=== PATIENT | male | born 1935 | race Caucasian/White ===

== ENCOUNTER → 2017-02-17 | Outpatient (CLI) | payer MEDICARE, OTHER ==
[2014-04-22 12:15] VITALS: BP 161/70
[~2017-02-17] MED LIST: ALLO300T PO; AMIT25TA PO; ASPI-482 PO; ATOR40TA59 PO; CHEMOTHERAPY; FINA5TAB4 PO; GABA600T2 PO; HYDR-2163 PO; LEVO75TA PO; LOSA25TA4 PO; METF500T25 PO; METO50TA29 PO; MOXI3DRO2 LEFTEYE; MOXI3DRO2 RIGHTEYE; NEPA1.7D LEFTEYE; NEPA1.7D RIGHTEYE; PRED5DRO16 LEFTEYE; PRED5DRO16 RIGHTEYE; RANI150T2 PO
--- NOTE | 2017-02-17 08:53 | RAD ---
Indication: Left hand swelling, fall. Time of exam 0823 hours. 3 views of the left hand were obtained. There is soft tissue swelling along the dorsum of the hand. There are degenerative changes at the triscaphe and first CMC joints. Metacarpals are intact. The phalanges are intact. No fractures are seen. Impression: Soft tissue swelling and degenerative changes. No acute bony abnormality is detected.
== END | disposition home or self-care (01) ==
LOC: DXRADRC 08:14
PROVIDERS: ATTEND Physician Assistant Medical
DX: M19.042 Primary osteoarthritis, left hand (principal); W19.XXXA Unspecified fall, initial encounter; Y93.89 Activity, other specified; Y92.89 Other specified places as the place of occurrence of the external cause; Y99.8 Other external cause status
CPT/HCPCS: 73130

== ENCOUNTER 2018-01-22 14:00 | Emergency (ER) | payer MEDICARE, OTHER ==
[~2018-01-22] VITALS: Ht 177.8 cm; Wt 83.9 kg
[~2018-01-22 14:00] MED LIST changes: -LOSA25TA4 PO; +LOSA25TA5 PO
--- NOTE | 2018-01-22 15:12 | PHYS DOC ---
Past History Past Medical History: Cancer, Diabetes, Heart Disease, Hypertension, [place], Other Past Surgical History: Other Smoking: Non-smoker Alcohol Use: None Drug Use: None Adult General Chief Complaint Chief Complaint: HIP PAIN HPI HPI 82-year-old male presents with right hip pain. The patient's pain is actually in the skin overlying the lateral and anterior thigh. The patient had shingles in this exact location 5 years ago. The concern is that this new pain on top of his chronic pain is similar to the pain he had just before he broke out with shingles. He would like the treatment earlier this time so I will is a case if in fact this is with having. Patient and his family denies any trauma or falls. He has been able to walk. Fever or chills. Review of Systems Review of Systems Constitutional: Denies fever or chills [] Eyes: Denies change in visual acuity, redness, or eye pain [] HENT: Denies nasal congestion or sore throat [] Respiratory: Denies cough or shortness of breath [] Cardiovascular: No additional information not addressed in HPI [] GI: Denies abdominal pain, nausea, vomiting, bloody stools or diarrhea [] : Denies dysuria or hematuria [] Musculoskeletal: Denies back pain or joint pain [] Integument: Denies rash or skin lesions, skin tingling left thigh [] Neurologic: Denies headache, focal weakness or sensory changes [] Endocrine: Denies polyuria or polydipsia [] All other systems were reviewed and found to be within normal limits, except as documented in this note. Allergies Allergies Allergies Coded Allergies Type Severity Reaction Last Updated Verified No Known Drug Allergies 04/22/14 No Physical Exam Physical Exam Constitutional: Well developed, well nourished, no acute distress, non-toxic appearance. [] HENT: Normocephalic, atraumatic, bilateral external ears normal, oropharynx moist, no oral exudates, nose normal. [] Eyes: PERRLA, EOMI, conjunctiva normal, no discharge. [] Neck: Normal range of motion, no tenderness, supple, no stridor. [] Cardiovascular:Heart rate regular rhythm, no murmur [] Lungs & Thorax: Bilateral breath sounds clear to auscultation [] Abdomen: Bowel sounds normal, soft, no tenderness, no masses, no pulsatile masses. [] Skin: Warm, dry, no erythema, no rash. I do not see a rash at this time. Patient is rubbing in the L2 dermatome area and states it feels like electrical shocks. [] Back: No tenderness, no CVA tenderness. [] Extremities: No tenderness, no cyanosis, no clubbing, ROM intact, no edema. [] Neurologic: Alert and oriented X 3, normal motor function, normal sensory function, no focal deficits noted. [] Psychologic: Affect normal, judgement normal, mood normal. [] Current Patient Data Vital Signs Vital Signs Date Time Temp Pulse Resp B/P (MAP) Pulse Ox O2 Delivery O2 Flow Rate FiO2 01/22/18 14:21 82 24 97 Room Air EKG EKG [] Radiology/Procedures Radiology/Procedures [] Course & Med Decision Making Course & Med Decision Making Pertinent Labs and Imaging studies reviewed. (See chart for details) The patient's pain distribution and story are concerning for shingles. I will treat him with Valtrex 1g 3 times a day for 7 days. He will follow-up with his PCP later this week. He is stable for discharge at this time. [] Dragon Disclaimer Dragon Disclaimer This electronic medical record was generated, in whole or in part, using a voice recognition dictation system. Departure Departure: Referrals: HELEN BLACKWELL APRN (PCP) MAYCO HORNER DO Jan 22, 2018 15:12
[2018-01-22] MEDS ORDERED: VALA1000 PO (15:14)
[2018-01-22] MEDS ORDERED: valACYclovir 500 MG TABLET. ONE (15:14)
[2018-01-22] MEDS: valACYclovir 500 MG TABLET. PO STA (15:16)
[2018-01-22 15:34] VITALS: BP 128/68
== END 2018-01-22 15:30 | disposition home or self-care (01) ==
LOC: ER 14:00
DX: M25.551 Pain in right hip (principal); R20.2 Paresthesia of skin; G89.29 Other chronic pain; E11.9 Type 2 diabetes mellitus without complications; I11.9 Hypertensive heart disease without heart failure; I25.2 Old myocardial infarction
CPT/HCPCS: 99283

== ENCOUNTER 2018-08-01 13:58 | Inpatient (IN) | payer MEDICARE, OTHER ==
[~2018-08-01] VITALS: Ht 177.8 cm; Wt 85.4 kg
[~2018-08-01 13:58] MED LIST changes: -GABA600T2 PO; +GABA600T7 PO; +LOSA25TA11 PO; -LOSA25TA5 PO; +MOXI3DRO18 LEFTEYE; +MOXI3DRO18 RIGHTEYE; -MOXI3DRO2 LEFTEYE; -MOXI3DRO2 RIGHTEYE; +VALA1000 PO
--- NOTE | 2018-08-01 14:37 | PHYS DOC ---
Past History Past Medical History: Cancer, Diabetes, Heart Disease, Hypertension, [place], Other Past Surgical History: Other Smoking: Non-smoker Alcohol Use: None Drug Use: None Adult General Chief Complaint Chief Complaint: WEAKNESS/GENERALIZED HPI HPI Patient is a 82-year-old male with increasing weakness, and frequent falls over the past week. Patient normally walks with a walker, has been just too weak to even do that, unable to perform his ADLs. Waxing and waning confusion during this time frame as well. Nothing seems to make this better or worse other than exertion for the weakness. Patient denies any chest pain. Patient has a history of CLL. No specific head trauma. He lives at home with family. He has been sick with flulike illness over the same time frame.[] Review of Systems Review of Systems Constitutional: Denies fever or chills [] Eyes: Denies change in visual acuity, redness, or eye pain [] HENT: Denies nasal congestion or sore throat [] Respiratory: Denies cough or shortness of breath [] Cardiovascular: No chest pain or palpitations[] GI: Denies abdominal pain, nausea, vomiting, bloody stools or diarrhea [] : Denies dysuria or hematuria [] Musculoskeletal: Denies back pain or joint pain [] Integument: Denies rash or skin lesions [] Neurologic: Denies headache, focal weakness or sensory changes [] Endocrine: Denies polyuria or polydipsia [] All other systems were reviewed and found to be within normal limits, except as documented in this note. Allergies Allergies Allergies Coded Allergies Type Severity Reaction Last Updated Verified No Known Drug Allergies 04/22/14 No Physical Exam Physical Exam Constitutional: Well developed, well nourished, no acute distress, non-toxic appearance. [] HENT: Normocephalic, atraumatic, bilateral external ears normal, oropharynx moist, no oral exudates, nose normal. [] Eyes: PERRLA, EOMI, conjunctiva normal, no discharge. [] Neck: Normal range of motion, no tenderness, supple, no stridor. [] Cardiovascular:Heart rate regular rhythm, no murmur [] Lungs & Thorax: Bilateral breath sounds clear to auscultation [] Abdomen: Bowel sounds normal, soft, no tenderness, no masses, no pulsatile masses. [] Skin: Warm, dry, no erythema, ecchymosis of his left forearm, family reports that this is long-standing due to his CLL medication.. [] Back: No tenderness, no CVA tenderness. [] Extremities: No tenderness, no cyanosis, no clubbing, ROM intact, no edema. [] Neurologic: Alert and oriented X 3, normal motor function, normal sensory function, no focal deficits noted. [] Psychologic: Affect normal, judgement normal, mood normal. [] EKG EKG EKG shows a regular rhythm with wide complexes at 69 bpm, left axis deviation - 86, QTC of 514 ms, believe this to be consistent with a paced rhythm despite not identifying pacer spikes on his EKG. Interpreted by me at 1535[] Radiology/Procedures Radiology/Procedures PROCEDURE: PORTABLE CHEST 1V EXAM: Chest, single view. HISTORY: Weakness. COMPARISON: 01/26/2013. FINDINGS: A frontal view of the chest obtained. There is no infiltrate, pleural effusion or pneumothorax. The heart is normal in size. There is a cardiac pacemaker with leads in expected position. There is slight hypoventilation with vascular crowding and atelectasis. IMPRESSION: No acute pulmonary finding. PROCEDURE: CT HEAD WO CONTRAST Examination: CT HEAD WO CONTRAST History: falls, weakness x 1 weeks Comparison/Correlation: 01/26/2013 CT head without contrast Findings: Axial images of the head were obtained without contrast. Atrophy is present. No intracranial hemorrhage, midline shift, or mass effect. No suspicious bony process. Visualized paranasal sinuses are clear. Mastoid air cells are clear. Impression: Atrophy. No intracranial hemorrhage.[] Course & Med Decision Making Course & Med Decision Making Pertinent Labs and Imaging studies reviewed. (See chart for details) ED course: Patient arrived, was placed in bed, and tolerated exam well. He was transported to and from [place] with any complications. After the return of the laboratory findings, these were compared with old ones that patient's son/ cmo & president had with him that showed significant only better but still elevated BUN and creatinine taken on June 25, 2018. He was given gentle hydration. Consultation was made with the hospitalist service for admission and further treatment and evaluation. She was admitted in improved condition. Patient and family voiced understanding. Brittany decision making: Patient appears to have some dehydration leading to some of his weakness however his BNP is elevated without evidence of overt failure on his chest x-ray so we'll provide cautious hydration. No evidence Of an acute stroke syndrome, no bleed intracranially. No evidence of an acute coronary syndrome.[] Dragon Disclaimer Dragon Disclaimer This electronic medical record was generated, in whole or in part, using a voice recognition dictation system. Departure Departure: Impression: Primary Impression: Weakness Additional Impressions: Frequent falls Dehydration CLL (chronic lymphocytic leukemia) Elevated brain natriuretic peptide (BNP) level Disposition: ADMITTED INPATIENT Admitting Physician: Gabriel Harp Condition: IMPROVED Referrals: DAVID GARCIA MD (PCP) Problem Qualifiers SHASHANK WEBSTER DO Aug 01, 2018 14:37
--- NOTE | 2018-08-01 14:53 | RAD ---
Examination: CT HEAD WO CONTRAST History: falls, weakness x 1 weeks Comparison/Correlation: 01/26/2013 CT head without contrast Findings: Axial images of the head were obtained without contrast. Atrophy is present. No intracranial hemorrhage, midline shift, or mass effect. No suspicious bony process. Visualized paranasal sinuses are clear. Mastoid air cells are clear. Impression: Atrophy. No intracranial hemorrhage. PQRS Compliance Statement: One or more of the following individualized dose reduction techniques were utilized for this examination: 1. Automated exposure control 2. Adjustment of the mA and/or kV according to patient size 3. Use of iterative reconstruction technique Electronically signed by: Ravi Kevin MD (08/01/2018 2:50 PM) [id number]
--- NOTE | 2018-08-01 14:53 | RAD ---
EXAM: Chest, single view. HISTORY: Weakness. COMPARISON: 01/26/2013. FINDINGS: A frontal view of the chest obtained. There is no infiltrate, pleural effusion or pneumothorax. The heart is normal in size. There is a cardiac pacemaker with leads in expected position. There is slight hypoventilation with vascular crowding and atelectasis. IMPRESSION: No acute pulmonary finding. Electronically signed by: Rosita Mills MD (08/01/2018 2:50 PM) [place] [id number]
[2018-08-01 15:09] LABS: BASO % 0 % (0-3); EOS % 0 % (0-3); HEMATOCRIT 45.9 % (39.0-53.0); HEMOGLOBIN 14.9 g/dL (13.0-17.5); LYMPH # 0.7 x10^3/uL (1.0-4.8); LYMPH % 24 % (24-48); MEAN CORPUSCULAR HEMOGLOBIN 29 pg (25-35); MEAN CORPUSCULAR HGB CONC 33 g/dL (31-37); MEAN CORPUSCULAR VOLUME 90 fL (79-100); MONO # 0.1 x10^3/uL (0.0-1.1); MONO % 2 % (0-9); NEUT # 2.1 x10^3uL (1.8-7.7); NEUT % 74 % (31-73); PLATELET COUNT 69 x10^3/uL (140-400); RED BLOOD COUNT 5.08 x10^6/uL (4.30-5.70); RED CELL DISTRIBUTION WIDTH 18.4 % (11.5-14.5); WHITE BLOOD COUNT 2.8 x10^3/uL (4.0-11.0)
[2018-08-01 15:34] LABS: ALBUMIN 3.2 g/dL (3.4-5.0); CALCIUM 8.5 mg/dL (8.5-10.1); CREATININE 2.1 mg/dL (0.7-1.3); GFR 30.3; MAGNESIUM 2.2 mg/dL (1.8-2.4); POTASSIUM 4.9 mmol/L (3.5-5.1); TOTAL PROTEIN 6.5 g/dL (6.4-8.2)
[2018-08-01 16:17] LABS: BACTERIA,URINE 0 /HPF (0-FEW); BILIRUBIN,URINE NEG (NEG); CLARITY,URINE HAZY; COLOR,URINE AMBER; GLUCOSE,URINE NEG (NEG); NITRITE,URINE NEG (NEG); RBC,URINE 0 /HPF (0-2); SQUAMOUS EPITHELIAL CELL,UR OCC /LPF; UROBILINOGEN,URINE 1 mg/dL (0.2 mg/dL); WBC,URINE 0 /HPF (0-4)
[2018-08-01] MEDS ORDERED: IV NORMAL SALINE 500ML 500 ML IV ONE (16:30)
[2018-08-01] MEDS ORDERED: ACETAMINOPHEN 325 MG TABLET PO PRN (16:45)
[2018-08-01] MEDS ORDERED: ONDANSETRON PF 4 MG/2 ML VIAL. IV PRN (16:45)
--- NOTE | 2018-08-01 18:28 | EKG ---
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
[2018-08-01] MEDS ORDERED: METF500T9 PO (18:38)
[2018-08-01] MEDS ORDERED: METO-239 PO (18:38)
[2018-08-01] MEDS ORDERED: LEVO100T PO (18:38)
[2018-08-01] MEDS ORDERED: AMIO200T4 PO (18:38)
[2018-08-01] MEDS ORDERED: IBRU420T PO (18:38)
[2018-08-01 18:43] VITALS: BP 132/79
[2018-08-01] MEDS: IV NORMAL SALINE 1,000ML 1,000 ML IV SCH (20:47)
[2018-08-01 23:31] VITALS: BP 111/68
[2018-08-02] VITALS (9 sets, daily range): BP systolic 84–127; BP diastolic 45–78
[2018-08-02] MEDS: IV NORMAL SALINE 1,000ML 1,000 ML IV SCH ×2 (05:44→15:22)
[2018-08-02 06:15] LABS: BASO % 1 % (0-3); EOS % 1 % (0-3); HEMATOCRIT 41.4 % (39.0-53.0); HEMOGLOBIN 13.6 g/dL (13.0-17.5); LYMPH # 1.1 x10^3/uL (1.0-4.8); LYMPH % 33 % (24-48); MEAN CORPUSCULAR HEMOGLOBIN 30 pg (25-35); MEAN CORPUSCULAR HGB CONC 33 g/dL (31-37); MEAN CORPUSCULAR VOLUME 90 fL (79-100); MONO # 0.1 x10^3/uL (0.0-1.1); MONO % 2 % (0-9); NEUT # 2.1 x10^3uL (1.8-7.7); NEUT % 64 % (31-73); PLATELET COUNT 64 x10^3/uL (140-400); RED BLOOD COUNT 4.61 x10^6/uL (4.30-5.70); RED CELL DISTRIBUTION WIDTH 18.2 % (11.5-14.5); WHITE BLOOD COUNT 3.3 x10^3/uL (4.0-11.0)
[2018-08-02 06:29] LABS: ALBUMIN 2.6 g/dL (3.4-5.0); ALBUMIN/GLOBULIN RATIO 0.9 (1.0-1.7); CREATININE 1.8 mg/dL (0.7-1.3); GFR 36.2; POTASSIUM 4.6 mmol/L (3.5-5.1); TOTAL BILIRUBIN 1.5 mg/dL (0.2-1.0); TOTAL PROTEIN 5.5 g/dL (6.4-8.2)
[2018-08-02] MEDS ORDERED: metFORMIN XR 500 MG TAB.ER.24H PO SCH (08:00)
[2018-08-02] MEDS: LEVOTHYROXINE 100 MCG TABLET PO SCH (08:58)
[2018-08-02] MEDS: GABAPENTIN 300 MG CAPSULE. PO SCH ×2 (08:58→20:14)
[2018-08-02] MEDS: FAMOTIDINE 20 MG TABLET PO SCH (08:58)
[2018-08-02] MEDS: FINASTERIDE 5 MG TABLET PO SCH (08:58)
[2018-08-02] MEDS: AMIODARONE HCL 200 MG TABLET PO SCH (08:58)
[2018-08-02] MEDS: ALLOPURINOL 300 MG TABLET. PO SCH (08:58)
[2018-08-02 12:09] LABS: BACTERIA,URINE 0 /HPF (0-FEW); BILIRUBIN,URINE NEG (NEG); CLARITY,URINE CLEAR; COLOR,URINE YELLOW; GLUCOSE,URINE NEG (NEG); NITRITE,URINE NEG (NEG); RBC,URINE 0 /HPF (0-2); UROBILINOGEN,URINE 0.2 mg/dL (0.2 mg/dL); WBC,URINE 0 /HPF (0-4)
--- NOTE | 2018-08-02 14:36 | HP ---
ADMIT DATE: 08/01/2018 HISTORY OF PRESENT ILLNESS: The patient is an 82-year-old male patient who was brought to the Emergency Room with a complaint of weakness that is generalized and recurrent falls over the past week. The patient normally walks with a walker, has been just too weak to even do that, unable to perform his ADLs, waxing and waning confusion during this time frame as well; nothing seems to make this better or worse other than exertion. The patient denies any chest pain. He lives at home with his son and . He has been sick with flu-like illness over the same time frame, was evaluated in the Emergency Room and was extensively investigated and was admitted with generalized weakness, frequent falls, dehydration and a known history of chronic lymphatic leukemia. PAST MEDICAL HISTORY: Significant for chronic lymphatic leukemia for which he is followed by Dr. Key and apparently he is on ibrutinib 420 mg tablet once a day. Apparently, the patient is known to have had coronary artery disease, status post PCI with stent deployment x 5. He has hyperlipidemia. He apparently has also atrial fibrillation, hypertension. He has postherpetic neuralgia for which he is on gabapentin as well as amitriptyline, type 2 diabetes mellitus for which he is on metformin, hypothyroidism, and benign prostatic hypertrophy as well as gout. PAST SURGICAL HISTORY: Significant for coronary artery disease, status post PCI with stent deployment x 5, has a permanent pacemaker implantation, bilateral cataract extraction, has esophagogastroduodenoscopy and colonoscopy. ALLERGIES: He has no known drug allergies. MEDICATIONS: He is currently on following medications: He is on ibrutinib 420 mg for his chronic lymphatic leukemia. He is on amiodarone 200 mg once a day; atorvastatin calcium 40 mg at bedtime; metoprolol succinate 25 mg once a day; losartan potassium 25 mg, he takes 2 tablets once a day; gabapentin 300 mg twice a day; amitriptyline 12.5 mg at bedtime; ranitidine 150 mg twice a day; metformin 500 mg daily with breakfast, levothyroxine sodium 100 mcg daily. He is on finasteride 5 mg once a day, allopurinol 300 mg once a day. FAMILY HISTORY: He is only child, has no sisters or brothers. His father at age of 70, actually committing suicide, although he seemed to have congestive heart failure. Mother at the age of 71 because of alcoholism. SOCIAL HISTORY: He is , lives with his and his son. He quit smoking in 1968. Does not drink alcohol. 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 REVIEW OF SYSTEMS: The patient denied any blurring of vision; has had bilateral cataract extraction, but denied any glaucoma or macular degeneration. Denied any earache, tinnitus or sensorineural deafness. Denied any nosebleeds, stuffy nose or postnasal drip. Denied any sore throat, sore tongue, toothache, hoarseness of voice or difficulty swallowing. Denied any nausea, vomiting, diarrhea or constipation. Denied any hematemesis, melena or hematochezia. Denied any dysuria, frequency or hematuria. Denied any nocturia. Denied any chest pain, shortness of breath, orthopnea, paroxysmal nocturnal dyspnea. Denied any cough, phlegm or hemoptysis. He denied any dizziness, lightheadedness, or vertigo. The only complaint is that his legs are very weak and he has recurrent falls because of that. PHYSICAL EXAMINATION: GENERAL: On arrival to the Emergency Room, he looked pale, but no jaundice or cyanosis. No lymphadenopathy, no thyromegaly. No jugular venous distension. No limb edema. VITAL SIGNS: His heart rate was 64, blood pressure was 109/59, temperature was 97.7, respiratory rate was 16 and oxygen saturation was 94% on room air. HEAD, EYES, EARS, NOSE, AND THROAT: Showed normocephalic, atraumatic. NECK: Supple. HEART: Showed normal first and second heart sounds. No gallop, rub or murmur. CHEST: Clear to auscultation. No crepitation or rhonchi. ABDOMEN: Distended, soft, nontender. No guarding or rigidity. No organomegaly. All hernial orifice intact. Bowel sounds normal. NEUROLOGIC: He is somewhat hard of hearing, but otherwise all cranial nerves intact. EXTREMITIES: He moves extremities without difficulty; however, he required 2-person assist to get him out of the bed to walk with a walker. LABORATORY DATA: On admission showed a white cell count of 2800, hemoglobin 14.9, hematocrit 45.9, MCV 90 and platelet count of 69,000. His chemistry showed a serum sodium of 136, potassium 4.9, chloride 102, bicarbonate 27, anion gap of 7, BUN 30, creatinine 2.1, estimated GFR was 30 mL per minute. His glucose was 102, calcium was 8.5, magnesium 2.2. Total bilirubin 2, AST slightly elevated. ALT and alkaline phosphatase were normal. His beta natriuretic peptide was 4385. Total protein was 6.5, albumin was 3.2. His prothrombin time was 11, INR of 1. His urinalysis showed the urine was korin, hazy with a pH of 5.5, specific gravity of 1.015. The urine showed trace of protein. The urine was negative for glucose, ketones, nitrite, leukocyte esterase. There are no wbc's, no rbc's and no bacteria. He did have a CT scan of the head, which basically showed atrophy is present. No intracranial hemorrhage, midline shift, or mass effect. No suspicious bony process. The visualized paranasal sinuses are clear. Mastoid air cells are clear and basically the patient has had atrophic changes, but no intracranial hemorrhage. Chest x-ray showed that the patient has no infiltrate, pleural effusion, or pneumothorax. Heart size is normal. There is a cardiac pacemaker with leads in expected position. There is slight hypoventilation with vascular crowding and atelectasis. IMPRESSION: In summary, this is an 82-year-old male patient who was admitted with generalized weakness, recurrent falls. His skin showed multiple bruises likely because of falls and trauma, and underlying thrombocytopenia. The plan is to obviously continue with all his medication except apparently his ibrutinib as Dr. Key recommended against using it. We will check his orthostatics and monitor his lab work closely. We will also get physical and occupational therapy. GIOVANNA ALBERTO MD DR: CAROLYN/uriah JOB#: [id number] / [id number]
[2018-08-02] MEDS: ATORVASTATIN CALCIUM 20 MG TABLET PO SCH (20:14)
[2018-08-02] MEDS: DOCUSATE SODIUM 100 MG CAPSULE PO SCH (20:14)
[2018-08-02] MEDS: AMITRIPTYLINE HCL 25 MG TABLET PO SCH (20:14)
--- NOTE | 2018-08-02 20:32 | PN ---
DATE: 08/02/2018 SUBJECTIVE: The patient is resting, slightly propped up in bed, in no apparent respiratory distress. He denied any complaint and nursing staff stated that he has frequency. He is passing small amount of urine, has to go like very frequently every hours. We did scan his bladder. He was retaining more than 800 mL of urine, so we did place a Olmedo catheter and about 900 mL of urine were drained. He was seen by the physical therapist and apparently he required 2-person assist to help him to get out of bed. PHYSICAL EXAMINATION: GENERAL: When I examined him this morning, he looked well and was clearly in no apparent respiratory distress. No pallor, jaundice, cyanosis or thyromegaly. No jugular venous distention. No limb edema. VITAL SIGNS: His heart rate was 66, blood pressure was 127/59, temperature was 97.5, respiratory rate was 20, and oxygen saturation was 98%. HEAD, EYES, EARS, NOSE AND THROAT: Showed normocephalic, atraumatic. NECK: Supple. HEART: Showed normal first and second heart sounds. No gallop or murmur. CHEST: Clear to auscultation. No crepitation or rhonchi. ABDOMEN: Distended, soft, nontender. NEUROLOGIC: He is somewhat hard of hearing. Otherwise, all cranial nerves are intact. He moves extremities without difficulty. He requires 2-person assist to get out of bed and walk. He has an indwelling Olmedo catheter, enlarged, has benign prostatic hypertrophy with bladder outlet obstruction. His intake incompletely recorded, output was 350. LABORATORY DATA: His lab work this morning showed a white cell count of 3300, hemoglobin 13.6, hematocrit 41, MCV 90, and platelet count of 64,000. His chemistry as of this morning showed a serum sodium 139, potassium was 4.6, chloride 106, bicarbonate 26, anion gap of 7, BUN 30, creatinine 1.8, estimated GFR was 36 mL per minute, his glucose was 81, calcium was 8. Total bilirubin, AST, ALT slightly elevated. Alkaline phosphatase was normal. Total protein was 5.5, albumin was 2.6. His lactic acid was normal at 1.8. ASSESSMENT: This is an 82-year-old male patient who was admitted with generalized weakness and recurrent falls. CT scan was unremarkable, apart from age-related atrophy. The patient has a multitude of medical problems including chronic lymphatic leukemia for which he is followed by Dr. Key and he is on ibrutinib 420 mg once a day. He has leukopenia and thrombocytopenia. However, his hemoglobin and hematocrit are within normal range at 14 and 42. Other medical problems include coronary artery disease with a PCI and stent deployment x 5. He has atrial fibrillation, rate controlled, hypertension and hyperlipidemia. He has a postherpetic neuralgia for which he is on gabapentin, amitriptyline, hypothyroidism, benign prostatic hypertrophy, and gout. PLAN: My plan is to basically hold his losartan as well as his metformin. Continue with all other medication. Continue with IV fluid. He has an indwelling Olmedo catheter. We will get physical and occupational therapy. I have consulted Dr. Hercules to assist with his management. Repeat all his lab work again tomorrow. GIOVANNA ALBERTO MD DR: CAROLYN/uriah JOB#: [id number] / [id number]
[2018-08-03] VITALS (9 sets, daily range): BP systolic 109–128; BP diastolic 49–74
--- NOTE | 2018-08-03 04:18 | CONS ---
DATE OF CONSULTATION: 08/02/2018 NEUROLOGICAL CONSULTATION INITIAL REFERRING PHYSICIAN: Dr. Harp. REASON FOR CONSULTATION: Mental status changes and generalized weakness. HISTORY OF PRESENT ILLNESS: This is an 82-year-old right-handed male, who was admitted through Emergency Room yesterday after he presented with chief complaints of generalized weakness, difficulty walking, slow in performing ADLs, and intermittent confusions according to his daughter. These symptoms have been present for approximately one week and he described possible viral infection. The patient has had frequent falls and he related that to weakness of the lower extremities. The patient was found to be dehydrated. He also complains of constant pain confined to the anterior and medial aspect of the left thigh and he related that to the previous shingles. Currently, he denies headaches, visual disturbances, nausea, vomiting, chest pain, shortness of breath or palpitation, dysarthria, dysphagia or vertigo. Initial non-enhanced head CT scan revealed no acute intracranial process, but showed generalized atrophy. The patient stated he has been walking using a walker with assistance of the physical therapy personnel. PAST MEDICAL HISTORY: Significant for chronic lymphocytic leukemia diagnosed several years ago and he has been on ibrutinib 40 mg daily, history of coronary artery disease, status post PCI with stent placement x 5, atrial fibrillation, hypertension, hyperlipidemia, prostatic cancer required radiation therapy and subsequently he has indwelling catheter. Other medical problems include diabetes mellitus type 2 and gout, hypothyroidism. PAST SURGICAL HISTORY: Significant for permanent pacemaker placement, PCI with stent placement x 5 and cataract extraction. SOCIAL HISTORY: The patient is . He lives with his at home. He denies smoking, alcohol drinking, or illicit drug use. FAMILY HISTORY: His father at the age of 70 after he committed suicide. Mother at the age of 71 due to alcoholism. CURRENT HOME MEDICATIONS: MiraLax 17 grams daily, metoprolol 12.5 mg daily, Colace 100 mg b.i.d., Lipitor 20 mg at bedtime, amitriptyline 12.5 mg at bedtime, Pepcid 20 mg daily, gabapentin 300 mg b.i.d., Proscar 5 mg daily, amiodarone HCL 200 mg daily, allopurinol 300 mg daily, levothyroxine 100 mcg daily. ALLERGIES: No known drug allergies. REVIEW OF SYSTEMS: A 10-point review of system was performed as mentioned above in the history of present illness. PHYSICAL EXAMINATION: GENERAL: Well-developed, well-nourished male, not in acute distress. He weighs 186 pounds. VITAL SIGNS: Blood pressure 112/67, respiratory rate 20, pulse is 88, temperature 97.6, oxygen saturation is 95% on room air. HEENT: Normocephalic, atraumatic, otherwise, unremarkable. NECK: Supple. Negative for carotid bruit, lymphadenopathy or thyromegaly. LUNGS: Clear to A and P. CARDIOVASCULAR: Regular rate and rhythm, normal S1, S2. ABDOMEN: Soft. Bowel sounds positive. EXTREMITIES: Negative for pitting edema, but is positive for brownish discoloration. NEUROLOGIC: Mental Status: The patient is alert and oriented x 2. The speech is fluent. There is no language dysfunction. Memory, judgment and abstracting thinking are fair. The patient denies hallucination or delusion. CRANIAL NERVES: Visual douglass are full. The pupils are reactive to light and accommodation. The extraocular movements are intact. There is no nystagmus. There is no focal motor or sensory deficit. Deep tendon reflexes were symmetric and hypoactive with absent Achilles responses. Gait not tested at this time. LABORATORY DATA: CBC revealed white blood cells of 3300, hemoglobin 13.6, hematocrit 41.4, platelet count 64,000. Chemistry revealed sodium of 139, potassium 4.6, chloride 106, CO2 of 26, BUN 30, creatinine 1.8, glucose 81, calcium 8. Total bilirubin is high at 1.5 with elevated AST at 56 and ALT at 69. Urinalysis is negative for urinary tract infections. IMPRESSION: 1. Generalized weakness, probably multifactorial including coronary artery disease, orthostatic hypotension, dehydration and chronic lower back pain. 2. Paresthesia confined to the left thigh, probably due to previous herpes zoster -- shingles. 3. Multiple medical problems include coronary artery disease, chronic lymphocytic leukemia, hypertension, hyperlipidemia, hypothyroidism, prostate cancer. 4. Thrombocytopenia. RECOMMENDATIONS: 1. Careful hydration. 2. Physical therapy as tolerated. 3. Continue with current home medications. 4. We will arrange for followup on an outpatient basis to perform EEG and nerve conduction study of the lower extremities to rule out peripheral neuropathy versus lumbosacral radiculopathy. 5. Follow up with his oncologist. M Arlyn AVILA MD DR: JULISA/uriah JOB#: [id number] / [id number]
[2018-08-03 06:25] LABS: HEMATOCRIT 41.4 % (39.0-53.0); HEMOGLOBIN 13.5 g/dL (13.0-17.5); RED BLOOD COUNT 4.57 x10^6/uL (4.30-5.70); RED CELL DISTRIBUTION WIDTH 18.2 % (11.5-14.5); WHITE BLOOD COUNT 2.9 x10^3/uL (4.0-11.0)
[2018-08-03 06:39] LABS: CREATININE 1.6 mg/dL (0.7-1.3); GFR 41.5; POTASSIUM 4.4 mmol/L (3.5-5.1); URIC ACID 3.3 mg/dL (3.5-7.2)
[2018-08-03] MEDS: LEVOTHYROXINE 100 MCG TABLET PO SCH (07:32)
[2018-08-03] MEDS: FINASTERIDE 5 MG TABLET PO SCH (08:54)
[2018-08-03] MEDS: ALLOPURINOL 300 MG TABLET. PO SCH (08:54)
[2018-08-03] MEDS: GABAPENTIN 300 MG CAPSULE. PO SCH ×2 (08:54→20:29)
[2018-08-03] MEDS: DOCUSATE SODIUM 100 MG CAPSULE PO SCH ×2 (08:54→20:29)
[2018-08-03] MEDS: FAMOTIDINE 20 MG TABLET PO SCH (08:54)
[2018-08-03] MEDS: AMIODARONE HCL 200 MG TABLET PO SCH (08:54)
[2018-08-03] MEDS: POLYETHYLENE GLYCOL 3350 17 GM PACKET. PO SCH (08:55)
[2018-08-03] MEDS ORDERED: METOPROLOL SUCC 24HR ER 25 MG TAB.ER.24H. PO SCH (09:00)
--- NOTE | 2018-08-03 09:12 | PDOC2 ---
CONSULT Date of Admission DATE: 08/03/18 TIME: 08:57 Problem List Problems Medical Problems: (1) CLL (chronic lymphocytic leukemia) Status: Acute (2) Dehydration Status: Acute (3) Elevated brain natriuretic peptide (BNP) level Status: Acute (4) Frequent falls Status: Acute (5) Weakness Status: Acute History of Present Illness Mr Mcelroy is an 82-year-old male who presented to the ED with complaints of increasing weakness, and frequent falls for approximately one week. He reports normally using a walker but feeling too weak to do this or to perform daily iving activities. He was apparently somewhat confused. He was admitted for evaluation and treatment and yesterday was noted to have orthostatic hypotension so consult was called. He has a history of CAD, [place] PCI/stenting. He denies chest pain, dyspnea or congestive symptoms. He denies any lightheadedness or presyncope. 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 He has additionally a history of CLL. He lives at home with family. He had apparently been sick with flulike illness over the last week. Past Medical History shingles and cataracts. hard of hearing. Cardiovascular: AFIB, CAD, HTN, [place], hyperipidemia, Other (PPM) CENTRAL NERVOUS SYSTEM: Periperal neuropathy Heme/Onc: Cancer (prostate s/p Prostatectomy and CLL) Musculoskeletal: Weakness Rheumatologic: Gout Renal/: Prostate Ca. Endocrine: Diabetes, Hypothyroidism Past Surgical History PCI with stent deployment x 5, permanent pacemaker implantation, bilateral cataract extraction Past Surgical History: Hernia Repair, Other (prostatectomy with radiation implant) Family History non contributory due to age Social History and lives with and son. He quit smoking in 1968. Does not drink alcohol. He does not use illicit drugs. Current Medications Current Medications Sodium Chloride 500 ml @ 0 mls/hr 1X ONCE IV ; Start 08/01/18 at 16:30; Stop at 16:31; Status DC Ondansetron HCl (Zofran) 4 mg PRN Q4HRS PRN IV NAUSEA/VOMITING; Start 08/01/18 at 16:45; Stop 08/02/18 at 16:44; Status DC Sodium Chloride 1,000 ml @ 125 mls/hr Q8H IV Last administered on 08/02/18 15 :22; Start 08/01/18 at 16:45; Stop 08/02/18 at 16:44; Status DC Acetaminophen (Tylenol) 650 mg PRN Q4HRS PRN PO FEVER; Start 08/01/18 at 16:45 ; Stop 08/02/18 at 16:44; Status DC Levothyroxine Sodium (Synthroid) 100 mcg DAILYAC PO Last administered on 07:32; Start 08/02/18 at 07:30 Allopurinol (Zyloprim) 300 mg DAILY PO Last administered on 08/02/18 08:58; Start 08/02/18 at 09:00 Amiodarone HCl (Cordarone) 200 mg DAILY PO Last administered on 08/02/18 08:58 ; Start 08/02/18 at 09:00 Amitriptyline HCl (Elavil) 12.5 mg QHS PO Last administered on 08/02/18 20:14 ; Start 08/02/18 at 21:00 Atorvastatin Calcium (Lipitor) 20 mg QHS PO Last administered on 08/02/18 20: 14; Start 08/02/18 at 21:00 Finasteride (Proscar) 5 mg DAILY PO Last administered on 08/02/18 08:58; Start 08/02/18 at 09:00 Gabapentin (Neurontin) 300 mg BID PO Last administered on 08/02/18 20:14; Start 08/02/18 at 09:00 Metformin HCl (Glucophage Xr) 500 mg DAILYWBKFT PO Last administered on 08:58; Start 08/02/18 at 08:00; Status Future Hold Famotidine (Pepcid) 20 mg DAILY PO Last administered on 08/02/18 08:58; Start 08/02/18 at 09:00 Metoprolol Succinate (Toprol Xl) 12.5 mg DAILY PO ; Start 08/03/18 at 09:00; Status Future Hold Docusate Sodium (Colace) 100 mg BID PO Last administered on 08/02/18 20:14; Start 08/02/18 at 21:00 Polyethylene Glycol (miraLAX) 17 gm DAILY PO ; Start 08/03/18 at 09:00 Active Scripts Active Reported Imbruvica (Ibrutinib) 420 Mg Tablet 420 Mg PO DAILY Amiodarone Hcl 200 Mg Tablet 200 Mg PO DAILY Metoprolol Succinate ( Xl ) (Metoprolol Succinate) 25 Mg Tab.er.24h 12.5 Mg PO DAILY Synthroid (Levothyroxine Sodium) 100 Mcg Tablet 100 Mcg PO DAILYAC Ranitidine Hcl 150 Mg Tablet 150 Mg PO BID Losartan Potassium (Losartan Potassium) 25 Mg Tablet 2 Tab PO DAILY Gabapentin 600 Mg Tablet 300 Mg PO BID Finasteride 5 Mg Tablet 5 Mg PO DAILY Atorvastatin Calcium 40 Mg Tablet 20 Mg PO HS Amitriptyline Hcl 25 Mg Tablet 12.5 Mg PO HS Allopurinol 300 Mg Tablet 300 Mg PO DAILY Allergies: Coded Allergies: No Known Drug Allergies (Unverified , 04/22/14) Review of System as per HPI General: Alert, Oriented X3, Cooperative, No acute distress HEENT: Atraumatic, EOMI Lungs: Clear to auscultation Heart: Normal S1, Normal S2, Other (no gallops, clicks or rubs) Abdomen: Normal bowel sounds, Soft, No tenderness Extremities: No edema, Normal pulses Neuro: Normal speech Psych/Mental Status: Mood NL VITALS Vital Signs Date Time Temp Pulse Resp B/P (MAP) Pulse Ox O2 Delivery O2 Flow Rate FiO2 08/03/18 05:12 97.5 70 18 126/72 (90) 98 Nasal Cannula 2.0 Labs EKG - AV pacing CXR - IMPRESSION: No acute pulmonary finding. Laboratory Tests Test 08/01/18 14:54 08/01/18 15:55 08/02/18 05:44 08/02/18 07:55 White Blood Count 2.8 x10^3/uL (4.0-11.0) 3.3 x10^3/uL (4.0-11.0) Red Blood Count 5.08 x10^6/uL (4.30-5.70) 4.61 x10^6/uL (4.30-5.70) Hemoglobin 14.9 g/dL (13.0-17.5) 13.6 g/dL (13.0-17.5) Hematocrit 45.9 % (39.0-53.0) 41.4 % (39.0-53.0) Mean Corpuscular Volume 90 fL (79-100) 90 fL (79-100) Mean Corpuscular Hemoglobin 29 pg (25-35) 30 pg (25-35) Mean Corpuscular Hemoglobin Concent 33 g/dL (31-37) 33 g/dL (31-37) Red Cell Distribution Width 18.4 % (11.5-14.5) 18.2 % (11.5-14.5) Platelet Count 69 x10^3/uL (140-400) 64 x10^3/uL (140-400) Neutrophils (%) (Auto) 74 % (31-73) 64 % (31-73) Lymphocytes (%) (Auto) 24 % (24-48) 33 % (24-48) Monocytes (%) (Auto) 2 % (0-9) 2 % (0-9) Eosinophils (%) (Auto) 0 % (0-3) 1 % (0-3) Basophils (%) (Auto) 0 % (0-3) 1 % (0-3) Neutrophils # (Auto) 2.1 x10^3uL (1.8-7.7) 2.1 x10^3uL (1.8-7.7) Lymphocytes # (Auto) 0.7 x10^3/uL (1.0-4.8) 1.1 x10^3/uL (1.0-4.8) Monocytes # (Auto) 0.1 x10^3/uL (0.0-1.1) 0.1 x10^3/uL (0.0-1.1) Eosinophils # (Auto) 0.0 x10^3/uL (0.0-0.7) 0.0 x10^3/uL (0.0-0.7) Basophils # (Auto) 0.0 x10^3/uL (0.0-0.2) 0.0 x10^3/uL (0.0-0.2) Prothrombin Time 11.0 SEC (9.4-11.4) Prothromb Time International Ratio 1.1 (0.9-1.1) Sodium Level 136 mmol/L (136-145) 139 mmol/L (136-145) Potassium Level 4.9 mmol/L (3.5-5.1) 4.6 mmol/L (3.5-5.1) Chloride Level 102 mmol/L (98-107) 106 mmol/L (98-107) Carbon Dioxide Level 27 mmol/L (21-32) 26 mmol/L (21-32) Anion Gap 7 (6-14) 7 (6-14) Blood Urea Nitrogen 30 mg/dL (8-26) 30 mg/dL (8-26) Creatinine 2.1 mg/dL (0.7-1.3) 1.8 mg/dL (0.7-1.3) Estimated GFR (Cockcroft-Gault) 30.3 36.2 BUN/Creatinine Ratio 14 (6-20) 17 (6-20) Glucose Level 102 mg/dL (70-99) 81 mg/dL (70-99) Lactic Acid Level 1.8 mmol/L (0.4-2.0) Calcium Level 8.5 mg/dL (8.5-10.1) 8.0 mg/dL (8.5-10.1) Magnesium Level 2.2 mg/dL (1.8-2.4) Total Bilirubin 2.0 mg/dL (0.2-1.0) 1.5 mg/dL (0.2-1.0) Aspartate Amino Transf (AST/SGOT) 40 U/L (15-37) 56 U/L (15-37) Alanine Aminotransferase (ALT/SGPT) 46 U/L (16-63) 69 U/L (16-63) Alkaline Phosphatase 47 U/L (46-116) 47 U/L (46-116) Troponin I Quantitative 0.017 ng/mL (0-0.055) AD-Oeo-S-Type Natriuretic Peptide 4385 pg/mL (0-449) Total Protein 6.5 g/dL (6.4-8.2) 5.5 g/dL (6.4-8.2) Albumin 3.2 g/dL (3.4-5.0) 2.6 g/dL (3.4-5.0) Albumin/Globulin Ratio 1.0 (1.0-1.7) 0.9 (1.0-1.7) Urine Collection Type Unknown Urine Color Priscilla Urine Clarity Hazy Urine pH 5.5 Urine Specific [place] 1.015 Urine Protein Trace (NEG-TRACE) Urine Glucose (UA) Neg mg/dL (NEG) Urine Ketones (Stick) Neg mg/dL (NEG) Urine Blood Neg (NEG) Urine Nitrite Neg (NEG) Urine Bilirubin Neg (NEG) Urine Urobilinogen Dipstick 1 mg/dL (0.2 mg/dL) Urine Leukocyte Esterase Neg (NEG) Urine RBC 0 /HPF (0-2) Urine WBC 0 /HPF (0-4) Urine Squamous Epithelial Cells Occ /LPF Urine Bacteria 0 /HPF (0-FEW) Glucose (Fingerstick) 83 mg/dL (70-99) Test 08/02/18 11:58 08/02/18 12:10 08/02/18 16:31 08/02/18 19:46 Urine Collection Type U cath Urine Color Yellow Urine Clarity Clear Urine pH 5.5 Urine Specific [place] <=1.005 Urine Protein Neg (NEG-TRACE) Urine Glucose (UA) Neg mg/dL (NEG) Urine Ketones (Stick) Neg mg/dL (NEG) Urine Blood Neg (NEG) Urine Nitrite Neg (NEG) Urine Bilirubin Neg (NEG) Urine Urobilinogen Dipstick 0.2 mg/dL (0.2 mg/dL) Urine Leukocyte Esterase Neg (NEG) Urine RBC 0 /HPF (0-2) Urine WBC 0 /HPF (0-4) Urine Squamous Epithelial Cells None /LPF Urine Bacteria 0 /HPF (0-FEW) Glucose (Fingerstick) 101 mg/dL (70-99) 95 mg/dL (70-99) 97 mg/dL (70-99) Test 08/03/18 06:13 08/03/18 07:19 White Blood Count 2.9 x10^3/uL (4.0-11.0) Red Blood Count 4.57 x10^6/uL (4.30-5.70) Hemoglobin 13.5 g/dL (13.0-17.5) Hematocrit 41.4 % (39.0-53.0) Mean Corpuscular Volume 91 fL (79-100) Mean Corpuscular Hemoglobin 29 pg (25-35) Mean Corpuscular Hemoglobin Concent 33 g/dL (31-37) Red Cell Distribution Width 18.2 % (11.5-14.5) Platelet Count 64 x10^3/uL (140-400) Sodium Level 141 mmol/L (136-145) Potassium Level 4.4 mmol/L (3.5-5.1) Chloride Level 107 mmol/L (98-107) Carbon Dioxide Level 28 mmol/L (21-32) Anion Gap 6 (6-14) Blood Urea Nitrogen 22 mg/dL (8-26) Creatinine 1.6 mg/dL (0.7-1.3) Estimated GFR (Cockcroft-Gault) 41.5 Glucose Level 87 mg/dL (70-99) Uric Acid 3.3 mg/dL (3.5-7.2) Calcium Level 8.0 mg/dL (8.5-10.1) Creatine Kinase 61 U/L (39-308) Glucose (Fingerstick) 70 mg/dL (70-99) Assessment/Plan 1. orthostatic hypotension - fluids, TEDS, PRN Midodrine. Consider alternative to amitriptyline 2. CAD with prior PCI/stenting - check echo, continue medical mgmt 3. PPM - device interrogation 4. HTN- controlled 5. HLD - check lipids, continue statin 6. dehydration- improving, per PCP LATISHA VEGA [employer] ESTHETICIAN Aug 03, 2018 09:12
[2018-08-03] MEDS: IV NORMAL SALINE 1,000ML 1,000 ML IV SCH ×2 (09:15→17:32)
[2018-08-03] MEDS ORDERED: MIDODRINE 5 MG TABLET PO PRN (09:15)
--- NOTE | 2018-08-03 19:19 | PN ---
DATE: 08/03/2018 SUBJECTIVE: The patient continues to have pain, numbness and paresthesia confined to the left thigh. He said he tried everything in the [place], but it did not work for him. I am not sure how reliable the patient is regarding his workup for neuropathy in his left lower extremity. I mentioned two medications like Lyrica or gabapentin. He said he tried everything in the past. Otherwise, he denies any new medical or neurological complaints. OBJECTIVE: GENERAL: Well-developed, well-nourished male, not in acute distress. VITAL SIGNS: Blood pressure 126/72, pulse is 70 and regular, respiration is 18 and oxygen saturation 98% on 2 liters by nasal cannula. HEENT: Normocephalic, atraumatic, otherwise unremarkable. NECK: Supple, negative for carotid bruit, lymphadenopathy or thyromegaly. LUNGS: Clear to A and P. CARDIOVASCULAR: Regular rate and rhythm, normal S1, S2. There is no S3, S4 or murmur. ABDOMEN: Soft. Bowel sounds positive. EXTREMITIES: Negative for cyanosis, clubbing, pitting edema, but is positive for brownish discolorations to distal upper and lower extremities. NEUROLOGIC: The patient is alert and oriented x 3. Speech is fluent. There is no language dysfunction. Cranial nerves are intact. Motor examination: No focal motor or sensory deficit. Deep tendon reflexes were symmetric and hypoactive with absent Achilles responses. Gait not tested. LABORATORY DATA: CBC revealed white blood cells of 2.9 thousand, hemoglobin 13.5, hematocrit 41.4, platelet count 64,000. Chemistry revealed sodium 141, potassium 4.4, chloride 107, CO2 of 28, BUN 22, creatinine 1.6, glucose 87, and calcium 8. IMPRESSION: 1. Generalized weakness, probably multifactorial including chronic lower back pain, possible neuropathy in the lower extremities or postherpetic neuropathy in the left lower extremity. 2. Multiple medical problems include thrombocytopenia with chronic lymphocytic leukemia, hypertension, hyperlipidemia, hypothyroidism, and prostate cancer. RECOMMENDATIONS: 1. Consider gabapentin or Lyrica for neuropathic pain. 2. Continue with current management. 3. We will arrange for EMG/NCS of the lower extremities on an outpatient basis. 4. Follow up with his oncologist. 5. Physical therapy as tolerated. M F. HABIB, MD DR: JULISA/uriah JOB#: [id number] / [id number]
[2018-08-03] MEDS: ATORVASTATIN CALCIUM 20 MG TABLET PO SCH (20:29)
[2018-08-03] MEDS: AMITRIPTYLINE HCL 25 MG TABLET PO SCH (20:29)
--- NOTE | 2018-08-03 21:09 | PN ---
DATE: 08/03/2018 SUBJECTIVE: The patient is sitting at the edge of the bed, eating his lunch comfortably, in no apparent distress. On questioning him, he denied any complaint. The nursing staff did not voice any concern. Stated that he has no postural drop today and has been able to walk with a walker with a standby assist. PHYSICAL EXAMINATION: GENERAL: When I examined him, he looked pale, but no jaundice, cyanosis, or thyromegaly. No jugular venous distention. No limb edema. VITAL SIGNS: His heart rate was 66, blood pressure was 110/58, temperature was 97.6, respiratory rate 22, and oxygen saturation was 96% on 3 liters of oxygen by nasal cannula. HEAD, EYES, EARS, NOSE AND THROAT: Showed normocephalic, atraumatic. NECK: Supple. HEART: Showed normal first and second sounds. No gallop, rub or murmur. CHEST: Clear to auscultation. No crepitation or rhonchi. ABDOMEN: Distended, soft, nontender. No guarding or rigidity. No organomegaly. All hernial orifice intact. Bowel sounds normal. NEUROLOGIC: He is awake, alert, responding appropriately. All cranial nerves intact. He moves extremities without difficulty, ambulates with a walker. He has an indwelling Olmedo catheter. His intake was incompletely recorded and output was 350. LABORATORY DATA: As of this morning, his serum sodium was 141, potassium 4.4, chloride 107, bicarbonate 28, anion gap of 6, BUN 22, creatinine 1.6, estimated GFR was 41 mL per minute. His glucose was 86, uric acid was 3.3, calcium was 8. CK was 61. His blood sugar seems to be well controlled. His white cell count was 2900, hemoglobin was 13.5, hematocrit 41, MCV 91, and platelet count of 64,000. ASSESSMENT: 1. Orthostatic hypotension with resultant recurrent falls, I discontinued his losartan and was given IV fluid. 2. Coronary artery disease with PCI and stenting. 3. Acute on chronic kidney injury. His creatinine came down from 2.1 to 1.6 4. Hypertension, well controlled. 5. Hyperlipidemia. Dehydration is improving. 6. Type 2 diabetes mellitus. His blood sugar seems to be well controlled. I held his metformin, given his creatinine was 2.1 and still high at 1.6. PLAN: Is to hopefully discharge him tomorrow to [facility] to continue the process of rehabilitation. We will keep the indwelling Olmedo catheter in. We will arrange for him to be seen by the urologist next week. GIOVANNA ALBERTO MD DR: CAROLYN/uriah JOB#: [id number] / [id number]
[2018-08-04] MEDS: IV NORMAL SALINE 1,000ML 1,000 ML IV SCH ×2 (01:12→09:15)
[2018-08-04 08:29] LABS: ALBUMIN 2.1 g/dL (3.4-5.0); ALBUMIN/GLOBULIN RATIO 0.8 (1.0-1.7); CALCIUM 7.9 mg/dL (8.5-10.1); CREATININE 1.5 mg/dL (0.7-1.3); GFR 44.7; POTASSIUM 4.3 mmol/L (3.5-5.1); TOTAL PROTEIN 4.9 g/dL (6.4-8.2)
[2018-08-04] MEDS: GABAPENTIN 300 MG CAPSULE. PO SCH (08:31)
[2018-08-04] MEDS: FINASTERIDE 5 MG TABLET PO SCH (08:31)
[2018-08-04 08:32] LABS: BASO % 1 % (0-3); EOS # 0.1 x10^3/uL (0.0-0.7); EOS % 3 % (0-3); HEMATOCRIT 38.1 % (39.0-53.0); HEMOGLOBIN 12.3 g/dL (13.0-17.5); LYMPH # 1.1 x10^3/uL (1.0-4.8); LYMPH % 40 % (24-48); MEAN CORPUSCULAR HEMOGLOBIN 29 pg (25-35); MEAN CORPUSCULAR HGB CONC 32 g/dL (31-37); MEAN CORPUSCULAR VOLUME 91 fL (79-100); MONO # 0.1 x10^3/uL (0.0-1.1); MONO % 5 % (0-9); NEUT # 1.4 x10^3uL (1.8-7.7); NEUT % 51 % (31-73); PLATELET COUNT 63 x10^3/uL (140-400); RED BLOOD COUNT 4.21 x10^6/uL (4.30-5.70); RED CELL DISTRIBUTION WIDTH 18.1 % (11.5-14.5); WHITE BLOOD COUNT 2.8 x10^3/uL (4.0-11.0)
[2018-08-04] MEDS: LEVOTHYROXINE 100 MCG TABLET PO SCH (08:32)
[2018-08-04] MEDS: AMIODARONE HCL 200 MG TABLET PO SCH (08:32)
[2018-08-04] MEDS: DOCUSATE SODIUM 100 MG CAPSULE PO SCH (08:32)
[2018-08-04] MEDS: FAMOTIDINE 20 MG TABLET PO SCH (08:32)
[2018-08-04] MEDS: ALLOPURINOL 300 MG TABLET. PO SCH (08:32)
[2018-08-04] MEDS: POLYETHYLENE GLYCOL 3350 17 GM PACKET. PO SCH (08:33)
[2018-08-04 10:57] VITALS: BP 113/62
--- NOTE | 2018-09-06 17:39 | DS ---
DATE OF DISCHARGE: 08/04/2018 HOSPITAL COURSE: The patient is an 82-year-old male patient who was brought to the Emergency Room with a complaint of weakness, had generalized recurrent falls over the week prior to admission. He normally walks with a walker, has been too weak to even do that and unable to perform his ADLs, waxing and waning confusion during his time frame as well as nothing seems to make this better or worse other than exertion. He denied at that time any chest pain. He was extensively investigated and I held his losartan as well as his metformin. Continue on all other medications and started on IV fluid. He has an indwelling Olmedo catheter and we basically did also blood for culture and sensitivity. It was negative and he was found to be markedly dehydrated with [id number] kidney injury. His kidney function has steadily improved such his creatinine came down from 2.1 to 1.5. He has had no more postural hypotension and a decision was made to discharge him to [facility] to continue the process of rehabilitation and to arrange for him to be seen by urologist for enlarged prostate and bladder outlet obstruction. PHYSICAL EXAMINATION: GENERAL: On the day of discharge, he looked well and was clearly in no apparent respiratory distress. He was pale, but no jaundice, cyanosis, or thyromegaly. No jugular venous distention. No limb edema. VITAL SIGNS: His heart rate was 73, blood pressure was 113/62, temperature was 97.3, respiratory rate 20, and oxygen saturation was 95% on 3 liters of oxygen by nasal cannula. HEAD, EYES, EARS, NOSE, AND THROAT: Showed normocephalic, atraumatic. NECK: Supple. HEART: Showed normal first and second heart sounds. No gallop, rub, or murmur. CHEST: Clear to auscultation. No crepitation or rhonchi. ABDOMEN: Distended, soft, nontender. NEUROLOGIC: He was awake, alert, responding appropriately. All cranial nerves intact. He moved all extremities without difficulty, ambulated with a walker. GENITOURINARY: He continued to have an indwelling Olmedo catheter. LABORATORY DATA: On the day of discharge showed that his serum sodium was 142, potassium was 4.3, chloride 108, bicarbonate 29, anion gap of 5, BUN 16, creatinine 1.5, estimated GFR was 44 mL per minute. His glucose was 85, calcium was 7.9. Total bilirubin and alkaline phosphatase normal. AST, ALT slightly elevated. Total protein was 4.9, albumin 2.1. His white cell count was 2800, hemoglobin 12, hematocrit 38, MCV 91, and platelet count of 63,000. FINAL DISCHARGE DIAGNOSES: 1. Dehydration with [id number] kidney injury, resolved. Orthostatic hypotension due to dehydration, resolved. I discontinued his losartan. 2. Coronary artery disease, status post PCI with stent deployment. 3. Hypertension, well controlled. 4. Hyperlipidemia. 5. Type 2 diabetes mellitus. 6. Chronic lymphocytic leukemia with marked leukopenia and thrombocytopenia. GIOVANNA ALBERTO MD DR: CAROLYN/uriah JOB#: [id number] / [id number]
== END 2018-08-04 13:49 | DRG 947 ==
LOC: ER 13:58 → 1 SOUTH 16:26
PROVIDERS: ADMIT Internal Medicine; ATTEND Internal Medicine
DX: R53.1 Weakness (principal); N17.0 Acute kidney failure with tubular necrosis; C91.10 Chronic lymphocytic leukemia of B-cell type not having achieved remission; B02.29 Other postherpetic nervous system involvement; E86.0 Dehydration; I95.1 Orthostatic hypotension; E78.5 Hyperlipidemia, unspecified; I25.10 Atherosclerotic heart disease of native coronary artery without angina pectoris; E03.9 Hypothyroidism, unspecified; N40.0 Benign prostatic hyperplasia without lower urinary tract symptoms; M10.9 Gout, unspecified; R29.6 Repeated falls; I48.91 Unspecified atrial fibrillation; D69.6 Thrombocytopenia, unspecified; I12.9 Hypertensive chronic kidney disease with stage 1 through stage 4 chronic kidney disease, or unspecified chronic kidney disease; N18.9 Chronic kidney disease, unspecified; H91.90 Unspecified hearing loss, unspecified ear; G89.29 Other chronic pain; E11.22 Type 2 diabetes mellitus with diabetic chronic kidney disease; I25.2 Old myocardial infarction; Z95.5 Presence of coronary angioplasty implant and graft; Z98.42 Cataract extraction status, left eye; Z98.41 Cataract extraction status, right eye; Z95.0 Presence of cardiac pacemaker; Z90.79 Acquired absence of other genital organ(s); Z82.49 Family history of ischemic heart disease and other diseases of the circulatory system; Z87.891 Personal history of nicotine dependence; Z85.46 Personal history of malignant neoplasm of prostate; Z86.19 Personal history of other infectious and parasitic diseases
CPT/HCPCS: 36415; 70450; 71045; 80048; 80053; 80061; 81001; 82550; 82947; 83605; 83735; 83880; 84443; 84484; 84550; 85025; 85027; 85610; 87040; 93005; 97110; 97116; 97530; 99285-25; J7030

== ENCOUNTER 2018-08-09 23:48 | Inpatient (IN) | payer MEDICARE ==
[~2018-08-09] VITALS: Ht 177.8 cm; Wt 85.5 kg
[~2018-08-09 23:48] MED LIST changes: +AMIO200T4 PO; +IBRU420T PO; +LEVO100T PO; +METF500T9 PO; +METO-239 PO
--- NOTE | 2018-08-09 23:51 | ED.ADGEN ---
Past History Past Medical History: Anemia, CAD, Cancer, Other Past Surgical History: Pacemaker, Other Smoking: Non-smoker Alcohol Use: None Drug Use: None Adult General Chief Complaint Chief Complaint ".. I got up to go [facility]..." " I guess I was not suppose too...".. " I just want to go home.. to [place].." HPI HPI Patient is a 82 year old male from [place] who presents with hx of getting out bed and pulling out his urinary catheter out. Pt. has blood at his meatus. Pt. with history of urinary retention due to prostate issues. No recent travel or specific ill contacts. Patient does have significant medical history of chronic lymphocytic B-cell leukemia. altered mental status, gait disorder, thrombocytopenia, deconditioning, orthostatic hypotension, chronic ischemic heart disease, hyperlipidemia, benign prostatic hyperplasia, diabetes, hypothyroidism, falling, A. fib, hypertension, malignant prostate cancer, postherpetic neuropathy, urinary retention. Patient normally follows with . and Dr. Key- Oncology. Does have an upcoming apt. Recent admission at [facility] for confusion. Pt. recently started on Diflucan. Review of Systems Review of Systems Pt. somewhat a poor historian for recent events. Does seem to have a good memory for remote events. Constitutional: Denies fever or chills [] Eyes: Denies change in visual acuity, redness, or eye pain [] HENT: Denies nasal congestion or sore throat [] Respiratory: Denies cough or shortness of breath [] Cardiovascular: No additional information not addressed in HPI [] GI: Denies abdominal pain, nausea, vomiting, bloody stools or diarrhea [] : Complains of dysuria or hematuria [] Musculoskeletal: Denies back pain or joint pain [] Integument: Denies rash or skin lesions [] Neurologic: Denies headache, focal weakness or sensory changes [] Endocrine: Denies polyuria or polydipsia [] All other systems were reviewed and found to be within normal limits, except as documented in this note. Family History Family History Noncontributory Current Medications Current Medications Current Medications Medications (Trade) Dose Ordered Sig/Abigail Start Time Stop Time Status Last Admin Dose Admin Acetaminophen (Tylenol) 650 mg PRN Q4HRS PRN 08/10/18 02:15 08/11/18 02:14 Lactated Ringer's 1,000 ml @ 1,000 mls/hr Q1H 08/10/18 01:30 08/10/18 02:29 DC 08/10/18 01:48 1,000 MLS/HR Lidocaine HCl (Uro-Jet) 1 stephanie 1X ONCE 08/10/18 02:00 08/10/18 02:01 DC 08/10/18 01:47 1 STEPHANIE Ondansetron HCl (Zofran) 4 mg PRN Q4HRS PRN 08/10/18 02:15 08/11/18 02:14 Allergies Allergies Allergies Coded Allergies Type Severity Reaction Last Updated Verified No Known Drug Allergies 04/22/14 No Physical Exam Physical Exam Constitutional: Moderately acute distress, non-toxic appearance. [] HENT: Normocephalic, atraumatic, bilateral external ears normal, oropharynx dry, no oral exudates, nose normal. [] Eyes: PERRLA, EOMI, conjunctiva normal, no discharge. Glasses Neck: Normal range of motion, no tenderness, supple, no stridor. [] Cardiovascular:Heart rate ill regular rhythm, no murmur [, PMI to the left] Lungs & Thorax: Bilateral breath sounds equal apex auscultation [] Pacemaker. Abdomen: Bowel sounds normal, soft, no tenderness, no masses, no pulsatile masses. Bleeding from meatus. Radiation hart. Skin: Warm, dry, no erythema, no rash. [] Poor turgor. Back: No tenderness, no CVA tenderness. [] Extremities: No tenderness, no cyanosis, no clubbing, moves all ext on request, no edema. [] Arthritic changes. Neurologic: Alert and oriented X 2, moves all ext. on requests, decreased plantar sensory. No gross focal deficits noted per fpc from his baseline. Son at bedside states he seems back near his mental baseline. Psychologic: Affect anxious, judgement limited at times, mood normal. [] Current Patient Data Vital Signs Vital Signs Date Time Temp Pulse Resp B/P (MAP) Pulse Ox O2 Delivery O2 Flow Rate FiO2 08/10/18 00:53 97.7 84 20 94 Nasal Cannula 2.0 Lab Results Laboratory Tests Test 08/10/18 00:40 08/10/18 01:28 08/10/18 01:44 Urine Collection Type U cath Urine Color Daggett Urine Clarity Hazy Urine pH 7.0 Urine Specific Toppenish 1.010 Urine Protein 30 mg/dl (NEG-TRACE) Urine Glucose (UA) Neg mg/dL (NEG) Urine Ketones (Stick) Neg mg/dL (NEG) Urine Blood Large (NEG) Urine Nitrite Neg (NEG) Urine Bilirubin Neg (NEG) Urine Urobilinogen Dipstick 1 mg/dL (0.2 mg/dL) Urine Leukocyte Esterase Small (NEG) Urine RBC >40 /HPF (0-2) Urine WBC 5-10 /HPF (0-4) Urine Squamous Epithelial Cells None /LPF Urine Bacteria Few /HPF (0-FEW) White Blood Count 6.0 x10^3/uL (4.0-11.0) # Red Blood Count 4.10 x10^6/uL (4.30-5.70) L Hemoglobin 11.7 g/dL (13.0-17.5) L Hematocrit 36.1 % (39.0-53.0) L Mean Corpuscular Volume 88 fL (79-100) Mean Corpuscular Hemoglobin 29 pg (25-35) Mean Corpuscular Hemoglobin Concent 33 g/dL (31-37) Red Cell Distribution Width 17.9 % (11.5-14.5) H Platelet Count 129 x10^3/uL (140-400) #L Neutrophils (%) (Auto) 75 % (31-73) H Lymphocytes (%) (Auto) 21 % (24-48) L Monocytes (%) (Auto) 2 % (0-9) Eosinophils (%) (Auto) 1 % (0-3) Basophils (%) (Auto) 1 % (0-3) Neutrophils # (Auto) 4.5 x10^3uL (1.8-7.7) Lymphocytes # (Auto) 1.2 x10^3/uL (1.0-4.8) Monocytes # (Auto) 0.1 x10^3/uL (0.0-1.1) Eosinophils # (Auto) 0.1 x10^3/uL (0.0-0.7) Basophils # (Auto) 0.1 x10^3/uL (0.0-0.2) Erythrocyte Sedimentation Rate 43 (0-15) H Prothrombin Time 10.4 SEC (9.4-11.4) Prothrombin Time INR 1.0 (0.9-1.1) PTT 27 SEC (23-33) Sodium Level 140 mmol/L (136-145) Potassium Level 4.1 mmol/L (3.5-5.1) Chloride Level 104 mmol/L (98-107) Carbon Dioxide Level 32 mmol/L (21-32) Anion Gap 4 (6-14) L Blood Urea Nitrogen 16 mg/dL (8-26) Creatinine 1.6 mg/dL (0.7-1.3) H Estimated GFR (Cockcroft-Gault) 41.5 Glucose Level 100 mg/dL (70-99) H Calcium Level 8.6 mg/dL (8.5-10.1) Magnesium Level 2.2 mg/dL (1.8-2.4) Total Bilirubin 1.0 mg/dL (0.2-1.0) Direct Bilirubin 0.3 mg/dL (0.0-0.2) H Aspartate Amino Transferase (AST) 25 U/L (15-37) Alanine Aminotransferase (ALT) 29 U/L (16-63) Alkaline Phosphatase 69 U/L (46-116) Creatine Kinase 59 U/L (39-308) Troponin I Quantitative 0.019 ng/mL (0-0.055) Total Protein 5.8 g/dL (6.4-8.2) L Albumin 2.1 g/dL (3.4-5.0) L Lipase 87 U/L (73-393) Lactic Acid Level 0.7 mmol/L (0.4-2.0) EKG EKG My interpretation EKG shows a ill regular rhythm at 65 bpm.[] Findings consistent with A. fib no obvious P-wave. Does have a left ventricular strain pattern and nonspecific anterior changes. No findings acute STEMI of contralate ral changes. Radiology/Procedures Radiology/Procedures My interpretation of chest x-ray shows cardiomegaly. No large acute cardiopulmonary changes. No free air in the diaphragm. Does have a pacer.[] No large interval change Course & Med Decision Making Course & Med Decision Making Pertinent Labs and Imaging studies reviewed. (See chart for details) Discussed presentation testing and treatment plan with - will admit for further eval. and tx. . [] Final Impression Final Impression 1. Bleeding from Meatus after pulling out his urinary Olmedo 2. Hx. of Falling 3. Hx. CLL 4. Anemia 11.7 5. Elevated Creat. 1.2 6. Thrombocytopenia 129 7. Malnutrition Alb. 2.1 8. Dementia 9. Urinary Retention 10. Hx. Prostate CA 11. DM 12. Dehydration Dragon Disclaimer Dragon Disclaimer This electronic medical record was generated, in whole or in part, using a voice recognition dictation system. Discharge Summary Visit Information Final Diagnosis Problems Medical Problems: (1) Hematuria Status: Acute (2) Urinary retention Status: Acute Brief Hospital Course Allergies Allergies Coded Allergies Type Severity Reaction Last Updated Verified No Known Drug Allergies 04/22/14 No Vital Signs Vital Signs Date Time Temp Pulse Resp B/P (MAP) Pulse Ox O2 Delivery O2 Flow Rate FiO2 08/10/18 00:53 97.7 84 20 94 Nasal Cannula 2.0 Lab Results Laboratory Tests Test 08/10/18 00:40 08/10/18 01:28 08/10/18 01:44 Urine Collection Type U cath Urine Color Daggett Urine Clarity Hazy Urine pH 7.0 Urine Specific [place]ppen[place] 1.010 Urine Protein 30 mg/dl (NEG-TRACE) Urine Glucose (UA) Neg mg/dL (NEG) Urine Ketones (Stick) Neg mg/dL (NEG) Urine Blood Large (NEG) Urine Nitrite Neg (NEG) Urine Bilirubin Neg (NEG) Urine Urobilinogen Dipstick 1 mg/dL (0.2 mg/dL) Urine Leukocyte Esterase Small (NEG) Urine RBC >40 /HPF (0-2) Urine WBC 5-10 /HPF (0-4) Urine Squamous Epithelial Cells None /LPF Urine Bacteria Few /HPF (0-FEW) White Blood Count 6.0 x10^3/uL (4.0-11.0) Red Blood Count 4.10 x10^6/uL (4.30-5.70) Hemoglobin 11.7 g/dL (13.0-17.5) Hematocrit 36.1 % (39.0-53.0) Mean Corpuscular Volume 88 fL (79-100) Mean Corpuscular Hemoglobin 29 pg (25-35) Mean Corpuscular Hemoglobin Concent 33 g/dL (31-37) Red Cell Distribution Width 17.9 % (11.5-14.5) Platelet Count 129 x10^3/uL (140-400) Neutrophils (%) (Auto) 75 % (31-73) Lymphocytes (%) (Auto) 21 % (24-48) Monocytes (%) (Auto) 2 % (0-9) Eosinophils (%) (Auto) 1 % (0-3) Basophils (%) (Auto) 1 % (0-3) Neutrophils # (Auto) 4.5 x10^3uL (1.8-7.7) Lymphocytes # (Auto) 1.2 x10^3/uL (1.0-4.8) Monocytes # (Auto) 0.1 x10^3/uL (0.0-1.1) Eosinophils # (Auto) 0.1 x10^3/uL (0.0-0.7) Basophils # (Auto) 0.1 x10^3/uL (0.0-0.2) Erythrocyte Sedimentation Rate 43 (0-15) Prothrombin Time 10.4 SEC (9.4-11.4) Prothromb Time International Ratio 1.0 (0.9-1.1) Activated Partial Thromboplast Time 27 SEC (23-33) Sodium Level 140 mmol/L (136-145) Potassium Level 4.1 mmol/L (3.5-5.1) Chloride Level 104 mmol/L (98-107) Carbon Dioxide Level 32 mmol/L (21-32) Anion Gap 4 (6-14) Blood Urea Nitrogen 16 mg/dL (8-26) Creatinine 1.6 mg/dL (0.7-1.3) Estimated GFR (Cockcroft-Gault) 41.5 Glucose Level 100 mg/dL (70-99) Calcium Level 8.6 mg/dL (8.5-10.1) Magnesium Level 2.2 mg/dL (1.8-2.4) Total Bilirubin 1.0 mg/dL (0.2-1.0) Direct Bilirubin 0.3 mg/dL (0.0-0.2) Aspartate Amino Transf (AST/SGOT) 25 U/L (15-37) Alanine Aminotransferase (ALT/SGPT) 29 U/L (16-63) Alkaline Phosphatase 69 U/L (46-116) Creatine Kinase 59 U/L (39-308) Troponin I Quantitative 0.019 ng/mL (0-0.055) Total Protein 5.8 g/dL (6.4-8.2) Albumin 2.1 g/dL (3.4-5.0) Lipase 87 U/L (73-393) Lactic Acid Level 0.7 mmol/L (0.4-2.0) Brief Hospital Course Mr. Mcelroy is a 82 old male who presented with history of traumatic removal of his Olmedo catheter. History of CLL. Patient admitted to Dr. Harp. Discharge Information Condition at Discharge: Improved, Stable Dischare Medications Current Medications Lidocaine HCl (Uro-Jet) 10 stephanie [email or web address] ONCE .ROUTE ; Start 08/10/18 at 00:07; Stop 08/10/18 at 00:08; Status DC Lactated Ringer's 1,000 ml @ 1,000 mls/hr Q1H IV Last administered on 08/10/18at 01:48; Admin Dose 1,000 MLS/HR; Start 08/10/18 at 01:30; Stop 08/10/18 at 02:29; Status DC Lidocaine HCl (Uro-Jet) 1 stephanie 1X ONCE MM Last administered on 08/10/18at 01:47; Admin Dose 1 STEPHANIE; Start 08/10/18 at 02:00; Stop 08/10/18 at 02:01; Status DC Ondansetron HCl (Zofran) 4 mg PRN Q4HRS PRN IV NAUSEA/VOMITING; Start 08/10/18 at 02:15; Stop 08/11/18 at 02:14 Acetaminophen (Tylenol) 650 mg PRN Q4HRS PRN PO FEVER; Start 08/10/18 at 02:15; Stop 08/11/18 at 02:14 Active Scripts Active Reported [lidocaine viscous] 5 Ml TOP PRN Q4HRS PRN Diflucan (Fluconazole) 100 Mg Tablet 100 Mg PO DAILY started 08/09 for 7 days Metformin Hcl 500 Mg Tablet 500 Mg PO DAILY Colace (Docusate Sodium) 100 Mg Capsule 100 Mg PO BID Miralax (Polyethylene Glycol 3350) 17 Gm Powd.pack 17 Gm PO DAILY Famotidine 20 Mg Tablet 20 Mg PO DAILY Gabapentin 300 Mg Capsule 300 Mg PO BID Amiodarone Hcl 200 Mg Tablet 200 Mg PO DAILY Metoprolol Succinate ( Xl ) (Metoprolol Succinate) 25 Mg Tab.er.24h 12.5 Mg PO DAILY Synthroid (Levothyroxine Sodium) 100 Mcg Tablet 100 Mcg PO DAILY06 Finasteride 5 Mg Tablet 5 Mg PO DAILY Atorvastatin Calcium 40 Mg Tablet 20 Mg PO HS Amitriptyline Hcl 25 Mg Tablet 12.5 Mg PO HS Allopurinol 300 Mg Tablet 300 Mg PO DAILY Dragon Disclaimer This chart was dictated in whole or in part using Voice Recognition software in a busy, high-work load, and often noisy Emergency Department environment. It may contain unintended and wholly unrecognized errors or omissions. JOSE FLOREZ MD Aug 09, 2018 23:51
[2018-08-10] MEDS ORDERED: LIDOCAINE 2% JELLY 10ML IN APPLICATOR. ONE (00:07)
[2018-08-10 01:07] LABS: BILIRUBIN,URINE NEG (NEG); CLARITY,URINE HAZY; COLOR,URINE PINK; GLUCOSE,URINE NEG (NEG)
[2018-08-10 01:08] LABS: BACTERIA,URINE FEW /HPF (0-FEW); NITRITE,URINE NEG (NEG); RBC,URINE >40 /HPF (0-2); UROBILINOGEN,URINE 1 mg/dL (0.2 mg/dL)
[2018-08-10] MEDS ORDERED: IV RINGERS SOLUTION,LACTATED 1,000 ML IV SCH (01:30)
[2018-08-10 01:51] LABS: BASO # 0.1 x10^3/uL (0.0-0.2); BASO % 1 % (0-3); EOS # 0.1 x10^3/uL (0.0-0.7); EOS % 1 % (0-3); HEMATOCRIT 36.1 % (39.0-53.0); HEMOGLOBIN 11.7 g/dL (13.0-17.5); LYMPH # 1.2 x10^3/uL (1.0-4.8); LYMPH % 21 % (24-48); MEAN CORPUSCULAR HEMOGLOBIN 29 pg (25-35); MEAN CORPUSCULAR HGB CONC 33 g/dL (31-37); MEAN CORPUSCULAR VOLUME 88 fL (79-100); MONO # 0.1 x10^3/uL (0.0-1.1); MONO % 2 % (0-9); NEUT # 4.5 x10^3uL (1.8-7.7); NEUT % 75 % (31-73); PLATELET COUNT 129 x10^3/uL (140-400); RED CELL DISTRIBUTION WIDTH 17.9 % (11.5-14.5)
[2018-08-10 01:54] LABS: ALBUMIN 2.1 g/dL (3.4-5.0); CALCIUM 8.6 mg/dL (8.5-10.1); CREATININE 1.6 mg/dL (0.7-1.3); DIRECT BILIRUBIN 0.3 mg/dL (0.0-0.2); GFR 41.5; MAGNESIUM 2.2 mg/dL (1.8-2.4); POTASSIUM 4.1 mmol/L (3.5-5.1); TOTAL PROTEIN 5.8 g/dL (6.4-8.2)
--- NOTE | 2018-08-10 01:58 | EKG ---
[address] [address] Test Date: 2018-08-10 Test Time: 01:56:51 Pat Name: AFIA CONNER Department: Room: Gender: M Telephone Claims Representative: HERRERA : 1935 Requested By: JOSE FLOREZ Order Number: [id number] Reading MD: Marito Hinton Measurements Intervals [place]zant Rate: 65 P: ME: QRS: 59 QRSD: 104 T: -78 QT: 442 QTc: 465 Interpretive Statements A PACED INFERIOR LATERAL T WAVE INVERSION Electronically Signed On 08-15-2018 12:01:40 CDT by Marito Hinton
[2018-08-10] MEDS ORDERED: LIDOCAINE 2% JELLY 10ML IN APPLICATOR. MM ONE (02:00)
[2018-08-10] MEDS ORDERED: ACETAMINOPHEN 325 MG TABLET PO PRN (02:15)
[2018-08-10] MEDS ORDERED: ONDANSETRON PF 4 MG/2 ML VIAL. IV PRN (02:15)
[2018-08-10 02:46] LABS: SEDIMENTATION RATE 43 (0-15)
[2018-08-10 03:00] VITALS: BP 157/70
[2018-08-10] MEDS ORDERED: lidocaine viscous TOP (03:20)
[2018-08-10] MEDS ORDERED: FAMO20TA5 PO (03:20)
[2018-08-10] MEDS ORDERED: GABA300C8 PO (03:20)
[2018-08-10] MEDS ORDERED: DOCU-109 PO (03:20)
[2018-08-10] MEDS ORDERED: FLUC100T7 PO (03:20)
[2018-08-10] MEDS ORDERED: METF500T16 PO (03:20)
[2018-08-10] MEDS ORDERED: POLY17PO5 PO (03:20)
[2018-08-10] MEDS: IV RINGERS SOLUTION,LACTATED 1,000 ML IV SCH ×3 (03:51→16:03)
[2018-08-10 05:20] VITALS: BP 139/72
--- NOTE | 2018-08-10 07:52 | RAD ---
PORTABLE CHEST 1V Clinical Indication: Fall Comparison: AP chest August 01, 2018. Findings: There is left chest dual-chamber pacer. Atherosclerotic thoracic aorta. The cardiac size is stable. There is reticular opacity in the right upper lobe, most apparent in the midlung. There is bibasilar atelectasis. There is no pneumothorax. No pleural effusion is appreciated. No acute bone abnormality. IMPRESSION: 1. There is right upper lobe reticular opacity that may be infiltrate or atelectasis or asymmetric edema. 2. Mild bibasilar atelectasis. Electronically signed by: Van Vinson MD (08/10/2018 7:19 AM) [id number]
[2018-08-10] MEDS: GABAPENTIN 300 MG CAPSULE. PO SCH ×2 (08:28→20:31)
[2018-08-10] MEDS: POLYETHYLENE GLYCOL 3350 17 GM PACKET. PO SCH (08:29)
[2018-08-10] MEDS: DOCUSATE SODIUM 100 MG CAPSULE PO SCH ×2 (08:29→20:31)
[2018-08-10] MEDS: metFORMIN 500 MG TABLET PO SCH (08:29)
[2018-08-10] MEDS: FAMOTIDINE 20 MG TABLET PO SCH (08:29)
[2018-08-10] MEDS: FINASTERIDE 5 MG TABLET PO SCH (08:31)
[2018-08-10] MEDS: METOPROLOL SUCC 24HR ER 25 MG TAB.ER.24H. PO SCH (08:31)
[2018-08-10] MEDS: FLUCONAZOLE 100 MG TABLET. PO SCH (08:32)
[2018-08-10] MEDS: ALLOPURINOL 300 MG TABLET. PO SCH (08:32)
[2018-08-10] MEDS: AMIODARONE HCL 200 MG TABLET PO SCH (08:32)
[2018-08-10] MEDS: LEVOTHYROXINE 100 MCG TABLET PO SCH (08:32)
[2018-08-10 11:38] VITALS: BP 118/60
[2018-08-10 15:40] VITALS: BP 117/66
[2018-08-10 17:02] LABS: HEMATOCRIT 37.1 % (39.0-53.0); HEMOGLOBIN 12.2 g/dL (13.0-17.5); RED BLOOD COUNT 4.18 x10^6/uL (4.30-5.70); RED CELL DISTRIBUTION WIDTH 17.8 % (11.5-14.5); WHITE BLOOD COUNT 8.9 x10^3/uL (4.0-11.0)
--- NOTE | 2018-08-10 17:24 | HP ---
ADMIT DATE: 08/10/2018 HISTORY OF PRESENT ILLNESS: The patient is an 82-year-old male patient currently residing at [facility] to continue the process of rehabilitation, who apparently brought to the Emergency Room as he got out of bed and pulled out his urinary catheter, and has bled. He has history of urinary retention due to prostate issues. He was evaluated in the Emergency Room, his catheter was replaced and was admitted for further evaluation and treatment to make sure that his H and H is stable, has no further episode of bleeding. According to the ER physician, the patient apparently was somewhat confused. He said that he wants to go home to [place]. While in the Emergency Room, he has had extensive investigation and his lab work, his hemoglobin and hematocrit were stable, and his platelet in fact has much improved. His kidney function is stable. His urinalysis was essentially unremarkable. There was large amount of blood and small amount of leukocyte esterase, only 5-10 wbc's and very few bacteria. PAST MEDICAL HISTORY: Significant for chronic lymphatic leukemia for which he is followed by Dr. Key and apparently he is on ibrutinib 420 mg tablet once a day. He is known to have coronary artery disease, status post PCI with stent deployment x 5, has hyperlipidemia, atrial fibrillation, hypertension. He has postherpetic neuralgia for which he is on gabapentin as well as amitriptyline. He has type 2 diabetes for which he is on metformin, hypothyroidism, and benign prostatic hypertrophy with bladder outlet obstruction as well as gout. PAST SURGICAL HISTORY: Significant for coronary artery disease, status post PCI with stent deployment x 5, has a permanent pacemaker implantation, bilateral cataract extraction, has had esophagogastroduodenoscopy and colonoscopy. ALLERGIES: He has no known drug allergies. FAMILY HISTORY: He is the only child, has no sisters or brothers. His father at age of 70 committing suicide, although he seemed to have congestive heart failure. His mother at age of 71 because of alcoholism. SOCIAL HISTORY: He is , lives with his and his son. He quit smoking in 1968. 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 REVIEW OF SYSTEMS: The patient denied any blurring of vision; however, he did have bilateral cataract extraction, but denied any glaucoma or macular degeneration. Denied any earache, tinnitus or sensorineural deafness. Denied any nosebleeds, stuffy nose or postnasal drip. Denied any sore throat, sore tongue, toothache, hoarseness of voice or difficulty swallowing. Denied any nausea, vomiting, diarrhea or constipation. Denied any hematemesis, melena or hematochezia. Did have obviously traumatic hematuria. Denied any nocturia. Denied any chest pain, shortness of breath, orthopnea or paroxysmal nocturnal dyspnea. Denied any cough, phlegm or hemoptysis. Denied any dizziness, lightheadedness, or vertigo. PHYSICAL EXAMINATION: GENERAL: On arrival to the Emergency Room, he looked pale, but no jaundice, cyanosis, or thyromegaly. No jugular venous distention. No lower limb edema. VITAL SIGNS: His heart rate was 70, blood pressure was 157/70, temperature was 97.7, respiratory rate 20, and oxygen saturation was 94% on 2 liters of oxygen. HEAD, EYES, EARS, NOSE, AND THROAT: Showed normocephalic, atraumatic. NECK: Supple. HEART: Showed normal first and second heart sounds. No gallop, rub or murmur. CHEST: Clear to auscultation. No crepitation or rhonchi. ABDOMEN: Distended, soft, nontender. No guarding or rigidity. No organomegaly. All hernial orifices are intact. Bowel sounds normal. NEUROLOGIC: He is somewhat lethargic, but arousable. All cranial nerves are intact. He moves extremities without difficulty. LABORATORY DATA: His lab work on arrival to the Emergency Room showed his white cell count was 6000, hemoglobin 11.7, hematocrit 36.1, MCV 88, and a platelet count of 129,000 with normal manual differential. His prothrombin time was 10.4, INR 1, aPTT was 27. His chemistry showed his serum sodium 140, potassium 4.1, chloride 104, bicarbonate 32, anion gap of 4, BUN 16, creatinine 1.6, estimated GFR was 41 mL per minute. His blood glucose was 100, calcium was 8.6, magnesium 2.2. Total bilirubin, AST, ALT, alkaline phosphatase were normal. CK was 59. Total protein was 5.8, albumin was 2.1. Lipase was 87. His troponin was less than 0.019. Lactic acid was only 0.7. TSH was normal at 3.445. His chest x-ray showed that there is left chest dual chamber pacer, atherosclerotic thoracic aorta. The cardiac size is stable. There is reticular capacity in the right upper lobe, most apparent in the mid lung. There is bibasilar atelectasis. There is no pneumothorax, no pleural effusion is appreciated. No acute bone abnormality. IMPRESSION: The patient has right upper lobe reticular opacities that may be infiltrate, atelectasis, or symmetric edema, mild bibasilar atelectasis. The patient was admitted with fall, with traumatic hematuria, chronic lymphatic leukemia, anemia, impaired kidney function, thrombocytopenia, malnutrition, prostate cancer with urinary retention, diabetes mellitus and dehydration. PLAN: My plan is to probably check CT scan of the head without contrast to make sure that there is no evidence of any subdural hematoma. Given that he is so lethargic, at this point I saw him this afternoon and he has also mild thrombocytopenia. We will obviously monitor his urine to make sure that it remains clear with no further hematuria. We will check also his labs again this afternoon. I will discontinue his metformin and given his impaired kidney function, I might have to start him on a small dose of glimepiride if necessary. GIOVANNA ALBERTO MD DR: CAROLYN/uriah JOB#: [id number] / [id number]
--- NOTE | 2018-08-10 17:30 | RAD ---
Examination: CT HEAD WO CONTRAST History: ALTERED MENTAL STATUS Comparison/Correlation: 08/01/2018 CT head without contrast Findings: Axial images of the head were obtained without contrast. Advanced atrophy is present. No intracranial hemorrhage, midline shift, or mass effect. Ventricles are unremarkable. Bony structures are unremarkable. Impression: No acute process. PQRS Compliance Statement: One or more of the following individualized dose reduction techniques were utilized for this examination: 1. Automated exposure control 2. Adjustment of the mA and/or kV according to patient size 3. Use of iterative reconstruction technique Electronically signed by: Ravi Kevin MD (08/10/2018 5:27 PM) [facility]
[2018-08-10 19:00] VITALS: BP 149/77
[2018-08-10] MEDS: AMITRIPTYLINE HCL 25 MG TABLET PO SCH (20:31)
[2018-08-10] MEDS: ATORVASTATIN CALCIUM 20 MG TABLET PO SCH (20:31)
[2018-08-10 23:22] VITALS: BP 131/67
[2018-08-11] MEDS: ACETAMINOPHEN 325 MG TABLET PO PRN ×3 (04:10→16:35)
[2018-08-11 06:04] VITALS: BP 109/74
[2018-08-11] MEDS: LEVOTHYROXINE 100 MCG TABLET PO SCH (06:14)
[2018-08-11] MEDS: IV RINGERS SOLUTION,LACTATED 1,000 ML IV SCH (07:50)
[2018-08-11] MEDS: POLYETHYLENE GLYCOL 3350 17 GM PACKET. PO SCH (07:50)
[2018-08-11] MEDS: GABAPENTIN 300 MG CAPSULE. PO SCH ×3 (07:51→21:19)
[2018-08-11] MEDS: FAMOTIDINE 20 MG TABLET PO SCH (07:51)
[2018-08-11] MEDS: metFORMIN 500 MG TABLET PO SCH (07:51)
[2018-08-11] MEDS: FINASTERIDE 5 MG TABLET PO SCH (07:51)
[2018-08-11] MEDS: ALLOPURINOL 300 MG TABLET. PO SCH (07:51)
[2018-08-11] MEDS: AMIODARONE HCL 200 MG TABLET PO SCH (07:51)
[2018-08-11] MEDS: METOPROLOL SUCC 24HR ER 25 MG TAB.ER.24H. PO SCH (07:52)
[2018-08-11] MEDS: DOCUSATE SODIUM 100 MG CAPSULE PO SCH ×3 (07:52→21:19)
[2018-08-11] MEDS: FLUCONAZOLE 100 MG TABLET. PO SCH (07:52)
[2018-08-11 08:34] LABS: BASO % 1 % (0-3); EOS % 0 % (0-3); HEMATOCRIT 32.1 % (39.0-53.0); HEMOGLOBIN 10.6 g/dL (13.0-17.5); LYMPH # 0.6 x10^3/uL (1.0-4.8); LYMPH % 8 % (24-48); MEAN CORPUSCULAR HEMOGLOBIN 29 pg (25-35); MEAN CORPUSCULAR HGB CONC 33 g/dL (31-37); MEAN CORPUSCULAR VOLUME 87 fL (79-100); MONO # 0.1 x10^3/uL (0.0-1.1); MONO % 1 % (0-9); NEUT # 6.6 x10^3uL (1.8-7.7); NEUT % 90 % (31-73); PLATELET COUNT 126 x10^3/uL (140-400); RED BLOOD COUNT 3.68 x10^6/uL (4.30-5.70); RED CELL DISTRIBUTION WIDTH 17.7 % (11.5-14.5); WHITE BLOOD COUNT 7.3 x10^3/uL (4.0-11.0)
[2018-08-11 08:50] LABS: ALBUMIN 1.9 g/dL (3.4-5.0); ALBUMIN/GLOBULIN RATIO 0.5 (1.0-1.7); CALCIUM 8.1 mg/dL (8.5-10.1); CREATININE 1.6 mg/dL (0.7-1.3); GFR 41.5; TOTAL BILIRUBIN 1.1 mg/dL (0.2-1.0); TOTAL PROTEIN 5.4 g/dL (6.4-8.2)
[2018-08-11 11:58] VITALS: BP 169/72
[2018-08-11] MEDS ORDERED: FUROSEMIDE 40 MG/4 ML VIAL IVP ONE (13:00)
--- NOTE | 2018-08-11 16:31 | RAD ---
AP chest. HISTORY: Chest pain, weakness AP view was taken of the chest. Patient's taken a poor inspiration. There are mild infiltrates especially in the left lower lobe and right upper lobe. Heart is upper normal in size. Left pacemaker is unchanged. IMPRESSION: 1. Poor inspiration. 2. Mild infiltrates. Electronically signed by: Benjamin Benitez MD (08/11/2018 4:28 PM) [id number]
--- NOTE | 2018-08-11 16:37 | RAD ---
Bilateral hips 2 views each with one view pelvis. HISTORY: History of falls There is mild bowel distention the abdomen possibly an ileus. Pelvis is intact without an acute fracture. There is a catheter in the bladder. AP and lateral views of the right hip show no acute fracture or acute osseous abnormality. AP and lateral views of the left hip show no acute fracture or acute osseous abnormality. IMPRESSION: 1. No pelvic fracture noted. 2. No hip fracture noted. Electronically signed by: Benjamin Benitez MD (08/11/2018 4:34 PM) [id number]
[2018-08-11] MEDS: PIPERACILLIN/TAZOBACTAM 2.25 GM in IV NORMAL SALINE 50ML 50 ML IV SCH ×2 (16:42→22:30)
[2018-08-11] MEDS ORDERED: VANCOMYCIN PER PHARMACY MC PRN (16:45)
[2018-08-11 19:47] VITALS: BP 113/71
[2018-08-11] MEDS: AMITRIPTYLINE HCL 25 MG TABLET PO SCH ×2 (21:00→21:20)
[2018-08-11] MEDS: ATORVASTATIN CALCIUM 20 MG TABLET PO SCH ×2 (21:00→21:19)
[2018-08-11 23:51] VITALS: BP 113/60
--- NOTE | 2018-08-11 23:58 | PN ---
DATE: 08/11/2018 SUBJECTIVE: The patient is resting slightly propped up in bed, very encephalopathic, nonverbal, slightly tachypneic, febrile. His temperature went up to above 101.5. His blood cultures have grown gram-positive cocci in cluster seen in 2/4 bottles. I did start him on Zyvox, but apparently Zyvox is interacting with all pain medication. The patient has severe shingles in his left thigh that is very painful and therefore I switched him vancomycin to be dosed by the pharmacist. PHYSICAL EXAMINATION: GENERAL: When I examined him this afternoon, he was resting slightly propped up, slightly tachypneic, pale, no jaundice, cyanosis, or thyromegaly. No jugular venous distension. No lower limb edema. He has generalized anasarca. VITAL SIGNS: His heart rate was 107, blood pressure 169/72, temperature was 103.2, respiratory rate was 24, and oxygen saturation was 97% on room air, blood sugar was 138 mg/dL when I saw him this afternoon. HEAD, EYES, EARS, NOSE AND THROAT: Showed normocephalic, atraumatic. NECK: Supple. HEART: Showed normal first and second heart sounds. No gallop, rub or murmur. CHEST: Clear to auscultation. No crepitation or rhonchi. ABDOMEN: Distended, soft, nontender. NEUROLOGIC: He is very encephalopathic, nonverbal, although he moves his extremities. Occasionally, he has marked third spacing and ecchymosis involving both upper extremities. His intake over the last 24 hours was 1240, output was 450. LABORATORY DATA: As of this morning, his white cell count was 7300, hemoglobin 10.6, hematocrit 32, MCV 87, and platelet count of 126,000. Serum sodium was 136, potassium 4, chloride 102, bicarbonate 25, anion gap of 9, BUN 16, creatinine 1.6, estimated GFR was 41 mL per minute. His glucose was 99, calcium was 8.1. Total bilirubin, AST, ALT, alkaline phosphatase were normal. Total protein was 5.4, albumin was 1.9. His prothrombin time 10.4, INR 1, aPTT was 27. Urinalysis showed the urine was pink, hazy with a pH of 7, specific gravity of 1.010, small amount of protein, negative for glucose, ketones, large amount of blood, negative for nitrite and leukocyte esterase was small with more than 40 rbc's and 5-10 wbc's. ASSESSMENT AND PLAN: Probably Gram-positive septicemia, for which we started him initially on Zyvox, but because of the interaction, I switched him to vancomycin to be dosed by the pharmacist. I also added Zosyn 2.5 grams IV q. 8 hourly and the patient has severe hypoalbuminemia with marked third spacing. Stop the IV fluid. We will start him on IV Lasix. The family expressed their desire to give him a DNR/DNI. We will respect their wishes and we will continue with the fentanyl and Zofran for pain and nausea. GIOVANNA ALBERTO MD DR: CAROLYN/uriah JOB#: [id number] / [id number]
[2018-08-12] MEDS ORDERED: VANCOMYCIN 2 GM in IV NORMAL SALINE 500ML 500 ML IV ONE (05:00)
[2018-08-12] MEDS: LEVOTHYROXINE 100 MCG TABLET PO SCH (06:00)
[2018-08-12] MEDS: PIPERACILLIN/TAZOBACTAM 2.25 GM in IV NORMAL SALINE 50ML 50 ML IV SCH ×2 (07:23→13:52)
[2018-08-12] MEDS: AMIODARONE HCL 200 MG TABLET PO SCH (07:55)
[2018-08-12] MEDS: metFORMIN 500 MG TABLET PO SCH (08:00)
[2018-08-12] MEDS: DOCUSATE SODIUM 100 MG CAPSULE PO SCH (08:18)
[2018-08-12] MEDS: GABAPENTIN 300 MG CAPSULE. PO SCH (08:19)
[2018-08-12] MEDS: FLUCONAZOLE 100 MG TABLET. PO SCH (08:19)
[2018-08-12] MEDS: POLYETHYLENE GLYCOL 3350 17 GM PACKET. PO SCH (08:19)
[2018-08-12] MEDS: FINASTERIDE 5 MG TABLET PO SCH (08:19)
[2018-08-12] MEDS: FAMOTIDINE 20 MG TABLET PO SCH (08:19)
[2018-08-12] MEDS: ALLOPURINOL 300 MG TABLET. PO SCH (08:19)
[2018-08-12] MEDS: METOPROLOL SUCC 24HR ER 25 MG TAB.ER.24H. PO SCH (08:19)
[2018-08-12] MEDS ORDERED: HYDROmorphone 2 MG TABLET PO PRN ×2 (10:45)
[2018-08-12 10:56] VITALS: BP 132/70
[2018-08-12] MEDS ORDERED: HYDROmorphone PF 1 MG/ML DISP.SYRIN IV PRN (11:00)
[2018-08-12] MEDS: HYDROmorphone PF 1 MG/ML DISP.SYRIN IV PRN ×2 (11:13→14:07)
[2018-08-12] MEDS ORDERED: ACETAMINOPHEN 650 MG SUPP.RECT. PR PRN (11:15)
[2018-08-12 14:53] VITALS: BP 108/57
[2018-08-12] MEDS ORDERED: LACTOBACILLUS RHAMNOSUS GG 1 CAPSULE. PO SCH (21:00)
[2018-08-13] MEDS ORDERED: VANCOMYCIN 1.25 GM in IV NORMAL SALINE 250ML 250 ML IV SCH (05:00)
--- NOTE | 2018-08-13 14:34 | DS ---
DATE OF DISCHARGE: 08/12/2018 HOSPITAL COURSE: The patient is an 82-year-old male patient, who was admitted after he fell at [facility] and pulled his Olmedo catheter. 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 We did diagnose him with healthcare-associated pneumonia and he was septic and therefore, the family opted for comfort and hospice care and therefore he was discharged to inpatient hospice. PHYSICAL EXAMINATION: GENERAL: When I saw him this afternoon, he looked well and was comfortable in no respiratory distress, pale, but no jaundice, cyanosis, or thyromegaly. No jugular venous distention. He has generalized anasarca. VITAL SIGNS: His heart rate was 75, blood pressure was 108/57, temperature was 99.9, respiratory rate 20, and oxygen saturation was 86% on 2 liters of oxygen. HEAD, EYES, EARS, NOSE AND THROAT: Showed normocephalic, atraumatic. NECK: Supple. HEART: Showed normal first and second heart sounds. No gallop, rub or murmur. CHEST: Clear to auscultation. No crepitation or rhonchi. ABDOMEN: Distended, soft and nontender. NEUROLOGIC: He was encephalopathic. He does respond to his family. He is mostly bed bound. We discontinued all his oral medications. We will start him on hydromorphone 0.5-1 mg IV every 3 hours, Ativan 0.5-1 mg every 4 hours, scopolamine as well as oxygen, Tylenol for comfort. 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 GIOVANNA ALBERTO MD DR: CAROLYN/uriah JOB#: [id number] / [id number]
== END 2018-08-12 15:48 | disposition hospice, inpatient (51) | DRG 871 ==
LOC: ER 23:51 → 1 SOUTH 08-10 02:52
PROVIDERS: ADMIT Internal Medicine; ATTEND Internal Medicine
DX: A41.89 Other specified sepsis (principal); G92 Toxic encephalopathy; J18.9 Pneumonia, unspecified organism; C91.10 Chronic lymphocytic leukemia of B-cell type not having achieved remission; E46 Unspecified protein-calorie malnutrition; N13.8 Other obstructive and reflux uropathy; B02.9 Zoster without complications; C61 Malignant neoplasm of prostate; D64.9 Anemia, unspecified; D69.6 Thrombocytopenia, unspecified; E03.9 Hypothyroidism, unspecified; E11.9 Type 2 diabetes mellitus without complications; E78.5 Hyperlipidemia, unspecified; E86.0 Dehydration; I10 Essential (primary) hypertension; M10.9 Gout, unspecified; I25.10 Atherosclerotic heart disease of native coronary artery without angina pectoris; I48.91 Unspecified atrial fibrillation; N40.1 Benign prostatic hyperplasia with lower urinary tract symptoms; Y95 Nosocomial condition; Z51.5 Encounter for palliative care; Z66 Do not resuscitate; Z82.49 Family history of ischemic heart disease and other diseases of the circulatory system; Z87.891 Personal history of nicotine dependence; Z85.46 Personal history of malignant neoplasm of prostate; Z95.0 Presence of cardiac pacemaker; Z95.5 Presence of coronary angioplasty implant and graft; Z98.41 Cataract extraction status, right eye; Z98.42 Cataract extraction status, left eye; Z68.27 Body mass index [BMI] 27.0-27.9, adult
CPT/HCPCS: 36415; 51702; 70450; 71045; 73521; 80048; 80053; 80076; 81001; 82550; 82947; 83605; 83690; 83735; 84443; 84484; 85025; 85027; 85610; 85651; 85730; 87040; 87077; 87086; 87186; 87205; 87641; 93005; 96360; J1170; J1940; J2020; J2543; J3010; J3370; J7040; J7120; 99285-25

== ENCOUNTER 2018-08-12 15:53 | Inpatient (IN) | payer MEDICARE, OTHER ==
[~2018-08-12] VITALS: Ht 177.8 cm; Wt 85.5 kg
[~2018-08-12 15:53] MED LIST changes: +DOCU-109 PO; +FAMO20TA5 PO; +FLUC100T7 PO; +GABA300C8 PO; +METF500T16 PO; +POLY17PO5 PO; +lidocaine viscous TOP
[2018-08-12] MEDS ORDERED: HYDROmorphone PF 1 MG/ML DISP.SYRIN IV PRN (16:15)
[2018-08-12 16:16] VITALS: BP 108/57
[2018-08-12] MEDS: HYDROmorphone PF 1 MG/ML DISP.SYRIN IV PRN (16:46)
[2018-08-12] MEDS ORDERED: SCOPOLAMINE 1.5MG PATCH. TD SCH (17:00)
[2018-08-12] MEDS ORDERED: ONDANSETRON PF 4 MG/2 ML VIAL. IV PRN (17:30)
[2018-08-12] MEDS ORDERED: POLYVINYL ALCOHOL 1.4% OPHTH SOLUTION 15ML BOTTLE. OU PRN (17:45)
--- NOTE | 2018-08-12 18:08 | DS ---
DATE OF DISCHARGE: 08/12/2018 HOSPITAL COURSE: The patient is an 82-year-old male patient, who was admitted after he fell at [facility] and pulled his Olmedo catheter. 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 We did diagnose him with healthcare-associated pneumonia and he was septic and therefore, the family opted for comfort and hospice care and therefore he was discharged to inpatient hospice. PHYSICAL EXAMINATION: GENERAL: When I saw him this afternoon, he looked well and was comfortable in no respiratory distress, pale, but no jaundice, cyanosis, or thyromegaly. No jugular venous distention. He has generalized anasarca. VITAL SIGNS: His heart rate was 75, blood pressure was 108/57, temperature was 99.9, respiratory rate 20, and oxygen saturation was 86% on 2 liters of oxygen. HEAD, EYES, EARS, NOSE AND THROAT: Showed normocephalic, atraumatic. NECK: Supple. HEART: Showed normal first and second heart sounds. No gallop, rub or murmur. CHEST: Clear to auscultation. No crepitation or rhonchi. ABDOMEN: Distended, soft and nontender. NEUROLOGIC: He was encephalopathic. He does respond to his family. He is mostly bed bound. We discontinued all his oral medications. We will start him on hydromorphone 0.5-1 mg IV every 3 hours, Ativan 0.5-1 mg every 4 hours, scopolamine as well as oxygen, Tylenol for comfort. 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 GIOVANNA ALBERTO MD DR: CAROLYN/uriah JOB#: [id number] / [id number]
[2018-08-13 05:23] VITALS: BP 123/70
[2018-08-13] MEDS: HYDROmorphone PF 1 MG/ML DISP.SYRIN IV PRN ×4 (07:30→18:16)
--- NOTE | 2018-08-13 23:25 | PN ---
DATE: 08/13/2018 SUBJECTIVE: The patient was admitted yesterday to inpatient hospice. We discontinued all the aggressive treatment, lab work and/or imaging studies. He is now on hydromorphone as well as Ativan for comfort care as well as scopolamine and has been comfortable. Family are around him, not voiced any concern. Plan is to continue with comfort care. GIOVANNA ALBERTO MD DR: CAROLYN/uriah JOB#: [id number] / [id number]
--- NOTE | 2018-08-15 01:25 | DS ---
DATE OF DISCHARGE: 08/13/2018 SUMMARY The patient is an 82-year-old male patient, who was admitted for end of life to inpatient hospice. The patient was continued on hydromorphone and Ativan together with scopolamine, oxygen, and Tylenol as the patient was encephalopathic and basically, his vital signs were at around 1:00 in the morning on 08/14/2018, the patient has no spontaneous breathing and no audible heart sounds. No palpable pulsation and he was pronounced . The cause of is cardiopulmonary resuscitation, acute respiratory failure, probably aspiration pneumonia due to immune deficiency, hypogammaglobinemia, and chronic lymphatic leukemia. GIOVANNA ALBERTO MD DR: CAROLYN/uriah JOB#: [id number] / [id number]
== END 2018-08-13 23:43 | DRG 871 ==
LOC: 1 SOUTH 15:53
PROVIDERS: ADMIT Internal Medicine; ATTEND Internal Medicine
DX: A41.9 Sepsis, unspecified organism (principal); G92 Toxic encephalopathy; J69.0 Pneumonitis due to inhalation of food and vomit; J96.00 Acute respiratory failure, unspecified whether with hypoxia or hypercapnia; C91.10 Chronic lymphocytic leukemia of B-cell type not having achieved remission; N13.8 Other obstructive and reflux uropathy; D80.1 Nonfamilial hypogammaglobulinemia; N40.1 Benign prostatic hyperplasia with lower urinary tract symptoms; Y95 Nosocomial condition; Z51.5 Encounter for palliative care; I46.9 Cardiac arrest, cause unspecified
CPT/HCPCS: J1170; J2060; Q5005